=== PATIENT | female | born 1945 | race Hispanic/Latino ===

== ENCOUNTER 2017-06-18 11:29 | Inpatient (IN) | payer OTHER ==
--- NOTE | 2017-06-18 12:08 | ED PDOC ---
Arrival/HPI - General Chief Complaint: Chest Pain Time Seen by Provider: 06/18/17 11:42 Historian: Patient, Family - History of Present Illness Narrative History of Present Illness (Text): you were treated in the ED today for history of CABG, stent placement with CAD, HTN, HL, Neuropathy of the lower extremities, TIA and now your having mid- sternal chest with radiation to the neck and arms with difficulty breathing, but otherwise without any change to your baseline strength/sensation and your without nausea/vomiting/headache/dizziness/abdomen pain/numbness/tingling/loss of limb function/pain with urination. you took a full dose of aspirin and your plavix today and don't want further pain control. 06/18/17 12:00 Time/Duration: Other (1 day) Symptom Onset: Gradual Symptom Course: Improving Severity Level: Mild Context: Sitting Past Medical History - Provider Review Nursing Documentation Reviewed: Yes - Travel History Have you recently traveled outside [place] w/in the past 3 mons?: No - Infectious Disease Hx of Infectious Diseases: None - Tetanus Immunization Tetanus Immunization: Unknown - Reproductive Menopause: Yes - Cardiac Hx NV: Yes - Pulmonary Hx Asthma: Yes Hx Chronic Obstructive Pulmonary Disease (COPD): Yes - Neurological Hx Paralysis: No - HEENT Hx HEENT Disorder: Yes (WEARS GLASSES) - Renal Hx Renal Disorder: No (DENIES HISTORY) - Endocrine/Metabolic Hx Diabetes Mellitus Type 2: Yes - Hematological/Oncological Hx Blood Transfusions: Yes Hx Blood Transfusion Reaction: No - Integumentary Hx Dermatological Disorder: Yes - Musculoskeletal/Rheumatological Hx Musculoskeletal Disorders: Yes - Gastrointestinal Hx Gastroesophageal Reflux: Yes (Pt. reports that she had lapband surgery) - Genitourinary/Gynecological Other/Comment: breast cancer, vaginal infections - Psychiatric Hx Emotional Abuse: No Hx Physical Abuse: No Hx Substance Use: No - Surgical History Hx Cardiac Catheterization: Yes Hx Coronary Artery Bypass Graft: Yes - Anesthesia Hx Anesthesia Reactions: Yes (SEVERE NUMBNESS LOWER EXT. AFTER C- SECTION) Hx Malignant Hyperthermia: No - Suicidal Assessment Feels Threatened In Home Enviroment: No Family/Social History - Physician Review Nursing Documentation Reviewed: Yes Family/Social History: No Known Family HX Smoking Status: Never Smoked Hx Alcohol Use: No Hx Substance Use: No Hx Substance Use Treatment: No Allergies/Home Meds Allergies/Adverse Reactions: Allergies clarithromycin [From Biaxin] Allergy (Verified 06/18/17 11:37) SWELLING codeine Allergy (Verified 06/18/17 11:37) SWELLING Iodinated Contrast- Oral and IV Dye [Iodinated Contrast Media - IV Dye] Allergy (Verified 06/18/17 11:37) RASH shellfish derived Allergy (Verified 06/18/17 11:37) RASH Home Medications: Home Meds Medication Instructions Recorded Confirmed Alprazolam [Xanax] 0.25 mg PO HS 10/08/12 06/18/17 Aspirin [Ecotrin] 325 mg PO DAILY 10/08/12 06/18/17 Clopidogrel [Plavix] 75 mg PO DAILY 10/08/12 06/18/17 Losartan [Cozaar] 100 mg PO DAILY 10/08/12 06/18/17 Levothyroxine Sodium 112 mcg PO DAILY 10/23/15 06/18/17 Metoprolol Tartrate 25 mg PO BID 10/23/15 06/18/17 Primidone [Mysoline] 50 mg PO HS 10/23/15 06/18/17 Ranolazine [Ranexa] 500 mg PO TID 10/23/15 06/18/17 Rosuvastatin Calcium [Crestor] 20 mg PO DAILY 10/23/15 06/18/17 Gabapentin [Neurontin] 400 mg PO QID 04/12/16 06/18/17 Sertraline [Zoloft] 100 mg PO HS 04/12/16 06/18/17 Cetirizine HCl [Wal-Zyr] 10 mg PO PRN 06/18/17 06/18/17 DULoxetine [Cymbalta] 30 mg PO PRN 06/18/17 06/18/17 Fluticasone Nasal [Flonase] 0 mg NS 06/18/17 06/18/17 Insulin Glargine,Hum.rec.anlog 70 unit SQ HS 06/18/17 06/18/17 [Toujeo Solostar] Insulin Lispro [Humalog (Insulin 10 unit SQ TID 06/18/17 06/18/17 Lispro)] Omeprazole Magnesium [Prilosec] 20 mg PO DAILY 06/18/17 06/18/17 Vit D 1.25 1.25 mg PO 06/18/17 rOPINIRole [Requip] 1 mg PO HS 06/18/17 06/18/17 Review of Systems - Review of Systems Constitutional: Normal Eyes: Normal ENT: Normal Respiratory: SOB Cardiovascular: Chest Pain Gastrointestinal: Normal Genitourinary Female: Normal Musculoskeletal: Normal Skin: Normal Neurological: Normal Endocrine: Normal Hemo/Lymphatic: Normal Psychiatric: Normal Physical Exam Vital Signs Reviewed: Yes Vital Signs Temp Pulse Resp BP Pulse Ox 06/18/17 11:36 98.3 F 75 16 108/41 L 98 Appearance: Positive for: Non-Toxic Pain Distress: None Mental Status: Positive for: Alert and Oriented X 3 - Systems Exam Head: Present: Atraumatic, Normocephalic Pupils: Present: PERRL Extroacular Muscles: Present: EOMI Conjunctiva: Present: Normal Ears: Present: Normal Mouth: Present: Moist Mucous Membranes Pharnyx: Present: Normal Nose (External): Present: Atraumatic Nose (Internal): Present: Normal Inspection Neck: Present: Normal Range of Motion Respiratory/Chest: Present: Clear to Auscultation, Good Air Exchange Cardiovascular: Present: Regular Rate and Rhythm Abdomen: No: Tenderness, Distention, Normal Bowel Sounds, Peritoneal Signs, Rebound, Guarding, McBurney's Point Tender, Rovsing's Sign Present, Hernias, Feeding Tubes, Ostomy Tubes, Mass/Organomegaly, Scars, Other Back: Present: Normal Inspection Upper Extremity: Present: Normal Inspection Lower Extremity: Present: Normal Inspection Neurological: Present: GCS=15, CN II-XII Intact, Speech Normal, Motor Func Grossly Intact Skin: Present: Warm, Normal Color Psychiatric: Present: Alert, Oriented x 3, Normal Insight, Normal Concentration Medical Decision Making ED Course and Treatment: you were treated in the ED today for history of CABG, stent placement with CAD, HTN, HL, Neuropathy of the lower extremities, TIA and now your having mid- sternal chest with radiation to the neck and arms with difficulty breathing, but otherwise without any change to your baseline strength/sensation and your without nausea/vomiting/headache/dizziness/abdomen pain/numbness/tingling/loss of limb function/pain with urination. you took a full dose of aspirin and your plavix today and don't want further pain control. You were otherwise breathing easily, tearful, good strength/sensation, clear lungs, no abdomen tenderness. wbc 12.5, trop neg, bnp 313, mg 1.6. CHEST X-RAY Dictator : Guadalupe Gilmore MD Report Date : 06/18/2017 13:36:25 IMPRESSION: No appreciable new focal infiltrate although some mild bibasilar volume loss is suspected. Mild linear scarring in the left lower lobe is also noted. 06/18/17 13:51 06/18/17 13:52 D.WDevon Piper who stated can admit to telemetry and consult Dr. Mendes cardiology. - Lab Interpretations Lab Results: 06/18/17 11:35 06/18/17 11:35 Lab Results 06/18/17 11:35: Sodium 139, Potassium 4.5, Chloride 102, Carbon Dioxide 23, Anion Gap 18, BUN 13, Creatinine 0.9, Est GFR ( Amer) > 60, Est GFR (Non- Af Amer) > 60, Random Glucose 89, Calcium 10.7 H, Magnesium 1.6 L, Total Bilirubin 1.0, AST 45 H, ALT 28, Alkaline Phosphatase 60, Lactate Dehydrogenase 500, Total Creatine Kinase 57, Troponin I < 0.01, NT-Pro-B Natriuret Pep 313, Total Protein 7.7, Albumin 4.4, Globulin 3.3, Albumin/Globulin Ratio 1.4 06/18/17 11:35: PT 12.9 H, INR 1.12 H, APTT 27.0 06/18/17 11:35: WBC 12.5 H D, RBC 4.59, Hgb 14.3, Hct 40.9, MCV 89.1, MCH 31.2, MCHC 35.0, RDW 12.6, Plt Count 189, MPV 10.1, Gran % 87.8 H, Lymph % (Auto) 6.1 L, [place] % (Auto) 5.6, Eos % (Auto) 0.4 L, Baso % (Auto) 0.1, Gran # 10.97 H, Lymph # 0.8 L, [place] # 0.7 H, Eos # 0.1, Baso # 0.01 I have reviewed the lab results: Yes (mg 1.6) - RAD Interpretation Radiology Orders: 06/18/17 11:56 CHEST TWO VIEWS (PA/LAT) [RAD] Stat Machine Pan Greaser: ED Physician (CXR similar to 10/23/15) - EKG Interpretation Interpreted by ED Physician: Yes (NSR, flipped t waves avr, v4, v5, v6 similar to 06/19/15) Type: 12 lead EKG - Medication Orders Current Medication Orders: Magnesium Sulfate 2 gm/ Sodium (Chloride) 104 mls @ 102 mls/hr IVPB ONCE ONE Stop: 06/18/17 13:58 Disposition/Present on Arrival - Present on Arrival Any Indicators Present on Arrival: No History of DVT/PE: No History of Uncontrolled Diabetes: No Urinary Catheter: No History of Decub. Ulcer: No History Surgical Site Infection Following: None - Disposition Have Diagnosis and Disposition been Completed?: Yes Diagnosis: Chest pain Disposition: HOSPITALIZED Disposition Time: 13:53 Patient Plan: Admission, Telemetry Condition: IMPROVED Discharge Instructions (ExitCare): Chest Pain (ED) Forms: [facility] [facility] (Czech)
[2017-06-18 12:15] LABS: BASO # 0.01 K/mm3 (0.0-2.0); BASO % 0.1 % (0.0-3.0); EOS # 0.1 (0.0-0.7); EOS % 0.4 % (1.5-5.0); GRAN # 10.97 (1.4-6.5); GRAN % 87.8 % (50.0-68.0); HEMOGLOBIN 14.3 g/dL (12.0-16.0); LYMPH # 0.8 (1.2-3.4); LYMPH % 6.1 % (22.0-35.0); MEAN CELL VOLUME 89.1 fl (80.0-105.0); MEAN CORPUSCULAR HEMOGLOBIN 31.2 pg (25.0-35.0); MEAN PLATELET VOLUME 10.1 fl (7.0-11.0); MONO # 0.7 (0.1-0.6); MONO % 5.6 % (1.0-6.0); RBC 4.59 10^6/uL (3.5-6.1); RED CELL DISTRIBUTION WIDTH 12.6 % (11.5-14.5); WHITE BLOOD COUNT 12.5 10^3/ul (4.5-11.0)
[2017-06-18 12:38] LABS: INR 1.12 (0.93-1.08); PROTHROMBIN TIME 12.9 SECONDS (9.4-12.5)
[2017-06-18 12:42] LABS: ALB/GLOB RATIO 1.4 (1.1-1.8); ALBUMIN 4.4 g/dL (3.0-4.8); ALT/SGPT 28 U/L (7-56); AST/SGOT 45 U/L (14-36); BLOOD UREA NITROGEN 13 mg/dL (7-21); CALCIUM 10.7 mg/dL (8.4-10.5); GFR AFRICAN-AMERICAN > 60; GFR NON-AFRICAN AMERICAN > 60; MAGNESIUM 1.6 mg/dL (1.7-2.2)
[2017-06-18 12:54] LABS: TROPONIN I < 0.01 ng/mL
[2017-06-18] MEDS ORDERED: Magnesium Sulfate 2 GM in Sodium Chloride 0.9% 100 ML IVPB ONE (12:57)
[2017-06-18 12:58] LABS: B-TYPE NATRIURETIC PEPTIDE 313 pg/mL (0-450)
--- NOTE | 2017-06-18 13:37 | RAD ---
HISTORY: 71yoF, with chest pain COMPARISON: 10/23/2015 TECHNIQUE: Chest PA and lateral FINDINGS: LUNGS: There is mild hazy density at the lung bases probably suggesting some mild volume loss. Minimal linear scarring is also seen in the left lower lobe. There is evidence of prior median sternotomy and neurostimulator device overlying the spine, both unchanged. No pneumothorax or effusion is seen. Trachea is midline. Heart is unchanged. No CHF is seen. PLEURA: No significant pleural effusion identified. No pneumothorax apparent. CARDIOVASCULAR: Normal. OSSEOUS STRUCTURES: No significant abnormalities. VISUALIZED UPPER ABDOMEN: Normal. OTHER FINDINGS: None. IMPRESSION: No appreciable new focal infiltrate although some mild bibasilar volume loss is suspected. Mild linear scarring in the left lower lobe is also noted.
--- NOTE | 2017-06-18 21:26 | HP ---
DATE: 06/18/2017 HISTORY OF PRESENT ILLNESS: Ms. Galaviz is a 71-year-old female presented to the ED with substernal chest pain. She has a history of coronary artery disease, status post CABG. History of hypertension, blood pressure controlled on current medications. She has also history of TIA in the past, no recent episodes, peripheral neuropathy. Also has a history of breast cancer, no evidence of relapse. No abdominal pain. No nausea. No vomiting. Also complaining of shortness of breath. PAST MEDICAL HISTORY: COPD, diabetes mellitus type 2, breast cancer, and CAD. PAST SURGICAL HISTORY: Status post CABG, status post Lap-Band surgery. PERSONAL HISTORY: Never smoked. No history of alcohol abuse. FAMILY HISTORY: Noncontributory. SOCIAL HISTORY: Lives at home. ALLERGIES: CLARITHROMYCIN, CODEINE, IODINE, AND SHELLFISH. HOME MEDICATIONS: Xanax 0.25 mg p.o. at bedtime, aspirin 325 mg p.o. daily, Plavix 75 mg daily, Cozaar 100 mg daily, Synthroid 112 mcg daily, metoprolol 25 mg p.o. b.i.d., Ranexa 500 mg p.o. t.i.d., gabapentin 400 four times daily, Zoloft 100 mg at bedtime, cetirizine 10 mg p.r.n., and Cymbalta 30 mg p.r.n. REVIEW OF SYSTEMS: As per HPI. Rest of 12-point review of systems reviewed is negative. PHYSICAL EXAMINATION: GENERAL: Mild respiratory distress. VITAL SIGNS: Temperature 98.7, heart rate 82 per minute, and blood pressure 140/70. HEENT: Oral mucosa dry. NECK: No lymphadenopathy. CHEST: Air entry present and equal bilaterally. No added sounds. CARDIOVASCULAR: S1 and S2 normal. No murmur. No gallop. ABDOMEN: Soft and nontender. No hepatosplenomegaly. EXTREMITIES: No edema. SKIN: Multiple scratch ott present, small petechiae related to itch ott. CENTRAL NERVOUS SYSTEM: Alert and oriented x3. No sensory or motor deficits. SPINE: Nontender. SKIN: As described above. DIAGNOSTIC DATA: Chest x-ray, no infiltrate. LABORATORY DATA: Reveals leukocytosis. Troponin normal. Renal functions normal. ASSESSMENT AND PLAN: Chest pain COPD exacerbation CAD DM II H/O breast cancer - no evidence of recurrence Leukocytosis Plan : We will admit to the hospital, telemonitoring, serial troponin monitoring. Cardiology consultation, Dr. Mendes requested. We will continue aspirin and Plavix. History of breast cancer. No evidence of recurrence. Chronic obstructive pulmonary disease. We will do DuoNebs and Solu-Medrol 20 b.i.d. Leukocytosis, we will sent UA stat. Ceftriaxone 1 g daily. Diabetes mellitus type 2, she will be on Lantus insulin 20 at bedtime and regular insulin 10 t.i.d. We will continue to monitor closely. Aura Piper MD MTDD
[2017-06-18] MEDS: Insulin Detemir 100 units/ml Vial (Levemir) SC SCH (21:39)
[2017-06-18] MEDS ORDERED: INSULIN GLARGINE HUM REC ANLOG 70 UNIT SQ SCH (22:00)
[2017-06-18 22:41] LABS: PH,URINE 6.5 (4.7-8.0); URINE BILIRUBIN NEGATIVE (NEGATIVE); URINE BLOOD NEGATIVE (NEGATIVE); URINE GLUCOSE (UA) NEGATIVE (NEGATIVE); URINE LEUKOCYTE ESTERASE TRACE Leu/uL (NEGATIVE); URINE NITRATE NEGATIVE (NEGATIVE); URINE PROTEIN TRACE mg/dL (<30 mg/dL); URINE UROBILINOGEN 0.2 E.U./dL (<1 E.U./dL)
[2017-06-18 22:44] LABS: URINE APPEARANCE CLEAR (CLEAR); URINE COLOR YELLOW (YELLOW)
[2017-06-18 22:46] VITALS: BMI 25.3
[2017-06-18 23:11] LABS: URINE RBC 0 - 2 /hpf (0-2)
[2017-06-18 23:12] LABS: URINE BACTERIA NEG (NEG)
[2017-06-19] MEDS: Insulin Lispro 1 UNITS/0.01 ML SC SCH ×3 (08:34→18:11)
[2017-06-19] MEDS: Levothyroxine 112 MCG TAB PO SCH (08:35)
[2017-06-19] MEDS: Pantoprazole 40 mg EC Tab PO SCH (08:35)
[2017-06-19] MEDS ORDERED: INSULIN LISPRO 10 UNIT SQ SCH (10:00)
[2017-06-19] MEDS ORDERED: Non Formulary Medication (Rosuvastatin Calcium [Crestor] 20 MG) PO SCH (10:00)
--- NOTE | 2017-06-19 10:16 | CARD ---
APPROVED REPORT EKG Measurement Heart [id number] ND 136P71 [id number] <Conclusion> Normal sinus rhythm Left anterior fascicular block Anterolateral infarct, old STTW changes No change
[2017-06-19] MEDS: Aspirin 325 mg EC Tablets PO SCH (10:39)
[2017-06-19] MEDS: Non Formulary Medication (Ranolazine [Ranexa] 500 MG) PO SCH ×3 (10:46→19:55)
[2017-06-19] MEDS: Enoxaparin 40 mg Syringe SC SCH (15:02)
--- NOTE | 2017-06-19 16:33 | CT ---
PROCEDURE: CT HEAD WITHOUT CONTRAST. HISTORY: TIA COMPARISON: Noncontrast head CT performed 10/24/15, MR brain without contrast performed 05/13/17 TECHNIQUE: Axial computed tomography images were obtained through the head/brain without intravenous contrast. Radiation dose: Total exam DLP = 814.63 mGy-cm. This CT exam was performed using one or more of the following dose reduction techniques: Automated exposure control, adjustment of the mA and/or kV according to patient size, and/or use of iterative reconstruction technique. FINDINGS: HEMORRHAGE: No intracranial hemorrhage. BRAIN: No mass effect or edema. The ruiz-white matter differentiation appears intact. Please note that MRI with diffusion imaging is more sensitive in the detection of acute ischemic event. VENTRICLES: No hydrocephalus. CALVARIUM: Unremarkable. PARANASAL SINUSES: Unremarkable as visualized. No significant inflammatory changes. MASTOID AIR CELLS: Unremarkable as visualized. No inflammatory changes. OTHER FINDINGS: None. IMPRESSION: No acute intracranial pathology identified.
[2017-06-19] MEDS: Insulin Detemir 100 units/ml Vial (Levemir) SC SCH (22:28)
--- NOTE | 2017-06-20 01:02 | PN ---
DATE: 06/19/2017 SUBJECTIVE: The patient has no complaints of any chest pain. No shortness of breath. No headaches or dizziness. She says her breathing is better. Her chest pain is resolved. PHYSICAL EXAMINATION: VITAL SIGNS: Temperature is 99, pulse is 63, blood pressure is 114/63, and respirations are 18. GENERAL: The patient is lying in bed, flat, comfortable. HEENT: No oral lesion. Anicteric sclerae. Moist mucosa. NECK: No JVD, adenopathy, or thyromegaly. CARDIOVASCULAR: S1 and S2, regular. No murmurs, rubs, or gallops. LUNGS: Clear to auscultation bilaterally. No wheeze, rales, or rhonchi. ABDOMEN: Bowel sounds are positive, soft, nontender and nondistended. EXTREMITIES: No cyanosis, clubbing or edema. LABORATORY DATA: White count of 12.5 and hemoglobin of 14.3. Rest of the labs have been reviewed. CT of the head done shows no pathology. ASSESSMENT: 1. Chest pain, resolved. 2. Coronary artery disease. 3. Diabetes type 2. PLAN: The patient is currently comfortable. She is going to be seen by Cardiology. The patient is on Lipitor for dyslipidemia. She is on diabetes medication with Humalog. The patient is on aspirin. She is going to continue with Lovenox. She is on gabapentin for her neuropathy. She is on Synthroid for hypothyroidism. She has an echo that has been ordered. I will repeat the patient's blood work and order physical therapy. Ayan Parham MD
--- NOTE | 2017-06-20 02:46 | CON ---
DATE: CARDIOLOGY CONSULTATION REASON FOR CONSULTATION: Chest pain. HISTORY OF PRESENT ILLNESS: The patient is a 71-year-old female, who has a history of coronary artery disease, status post coronary artery bypass surgery and multiple stenting in the past, according to the patient, who presented because of chest tightness radiating to the neck and both arms associated with shortness of breath. The patient is known to have a history of ischemic cardiomyopathy and most recent report of cardiac cath on records was noted from 03/2014, and the procedure revealed apical akinesis with ejection fraction of 35% to 40% and her coronary anatomy revealed patent stents in the RCA. No critical lesion in the circumflex and the occluded stent of LAD unchanged from previous study. The LOZADA was not chosen for coronary artery bypass surgery and given those findings, those were not changed from previous study, decision was made to explore other causes for progressive chest pain. The most recent Myoview stress test on record was from 04/2016 which revealed fixed anteroseptal, anterolateral and apical defect, suggestive for myocardial injury/ infarct, moderate LV dysfunction with anteroseptal and apical akinesis. SOCIAL HISTORY: The patient is nonsmoker. PAST MEDICAL HISTORY: Hypertension, coronary artery bypass surgery, TIA, and ischemic cardiomyopathy. MEDICATIONS: The patient is on aspirin 81 mg once a day, Lipitor mg once a day, Lopressor 25 mg once a day was withheld today, Neurontin 400 mg four times daily, Plavix 75 mg once a day, Synthroid 112 mcg once a day, Zoloft 100 mg once a day, Xanax 0.25 mg at bedtime. REVIEW OF SYSTEMS: No nausea or vomiting. No fever or chills. The patient is experiencing right arm pain. PHYSICAL EXAMINATION GENERAL: The patient is an elderly female who does not appear to be in acute distress. VITAL SIGNS: Blood pressure 116/63, heart rate 67, temperature 97.8, respirations 18. HEENT: Normocephalic. CHEST: Clear. HEART: S1 and S2 regular. ABDOMEN: Soft. EXTREMITIES: No edema. LABORATORY DATA: Today's SMA-7 is entirely within normal limits. Calcium is slightly abnormal at 10.7, magnesium is below normal at 1.6, one set of troponin is negative. Hemoglobin and hematocrit are 14.3 and 40.9, white count and platelet count are 12.5 and 189,000. Chest x-ray revealed borderline cardiomegaly, mild right lower lobe infiltrate. EKG revealed sinus rhythm, left anterior fascicular block, anterior old myocardial infarction. ASSESSMENT: 1. Chest pain, rule out myocardial infarction. 2. Ischemic cardiomyopathy. 3. Rule out transient ischemic attack. 4. Mild hypercalcemia. 5. Hypomagnesemia. RECOMMENDATIONS: Continue current aspirin and Plavix therapy. Continue Lopressor 25 mg twice a day and Cozaar 100 mg once a day. Start Lovenox 20 mg once a day. Obtain an echocardiogram and head CT scan without contrast. Rakan Regalado MD
[2017-06-20 07:13] LABS: MEAN CELL VOLUME 90.1 fl (80.0-105.0); MEAN CORPUSCULAR HEMOGLOBIN 30.6 pg (25.0-35.0); MEAN PLATELET VOLUME 9.9 fl (7.0-11.0); RBC 3.95 10^6/uL (3.5-6.1); RED CELL DISTRIBUTION WIDTH 12.4 % (11.5-14.5); WHITE BLOOD COUNT 7.7 10^3/ul (4.5-11.0)
[2017-06-20 07:16] LABS: HEMOGLOBIN 12.1 g/dL (12.0-16.0)
[2017-06-20 07:19] LABS: ALB/GLOB RATIO 1.1 (1.1-1.8); ALBUMIN 3.4 g/dL (3.0-4.8); ALT/SGPT 21 U/L (7-56); AST/SGOT 32 U/L (14-36); BLOOD UREA NITROGEN 13 mg/dL (7-21); CALCIUM 9.6 mg/dL (8.4-10.5); GFR AFRICAN-AMERICAN > 60; GFR NON-AFRICAN AMERICAN > 60
[2017-06-20 07:25] LABS: TROPONIN I 0.02 ng/mL
[2017-06-20] MEDS: Insulin Lispro 1 UNITS/0.01 ML SC SCH ×3 (07:30→19:03)
[2017-06-20] MEDS: Pantoprazole 40 mg EC Tab PO SCH (07:30)
[2017-06-20] MEDS: Levothyroxine 112 MCG TAB PO SCH (07:30)
--- NOTE | 2017-06-20 08:17 | PN ---
DATE: 06/20/2017 SUBJECTIVE: The patient has no complaints of any chest pain. No shortness of breath. No headaches. She says her chest pain is resolved. PHYSICAL EXAMINATION: VITAL SIGNS: Temperature is 97.5, pulse is 65, blood pressure is 117/62, and respirations are 20. GENERAL: The patient is lying in bed, flat, comfortable. HEENT: No oral lesion. Anicteric sclerae. Moist mucosa. NECK: No JVD, adenopathy, or thyromegaly. CARDIOVASCULAR: S1 and S2, regular. No murmurs, rubs, or gallops. LUNGS: Clear to auscultation bilaterally. No wheeze, rales, or rhonchi. ABDOMEN: Bowel sounds are positive, soft, nontender and nondistended. EXTREMITIES: No cyanosis, clubbing or edema. ASSESSMENT: 1. Chest pain, resolved. 2. Coronary artery disease. 3. Diabetes type 2. 4. Diabetic neuropathy. 5. Gastroparesis. 6. Hypothyroidism. 7. Chronic obstructive pulmonary disease. 8. Coronary artery disease. 9. 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 10. History of gastritis and reflux esophagitis. 11. History of lap band surgery. PLAN: The patient is currently on Claritin for congestion. She is on losartan for her blood pressure. She is on aspirin for coronary artery disease. She is receiving insulin for her diabetes, lispro 10 units with meals and insulin detemir 20 units subcu at bedtime. The patient is on Lipitor for dyslipidemia. She is on Lovenox for DVT prophylaxis. She is on gabapentin for her neuropathy. She is on Ranexa for her chest pain. She is on Synthroid for hypothyroidism. She also received Zoloft. She has an echo that has been ordered and is pending. She is going to be doing physical therapy. We will await for input from Dr. Mendes regarding any other issues. blood work and troponin is pending this morning. Ayan Parham MD
[2017-06-20] MEDS: Aspirin 325 mg EC Tablets PO SCH (10:29)
[2017-06-20] MEDS: Enoxaparin 40 mg Syringe SC SCH (10:30)
[2017-06-20] MEDS: Ranolazine [Ranexa] 500 MG (HOME MED) PO SCH ×2 (15:06→18:06)
--- NOTE | 2017-06-20 16:12 | CARD ---
APPROVED REPORT EXAM: Two-dimensional and M-mode echocardiogram with Doppler and color Doppler. INDICATION Chest Pain 2D DIMENSIONS Left Atrium (2D)4.1 (1.6-4.0cm)IVSd1.1 (0.7-1.1cm) LVDd5.0 (3.9-5.9cm)PWd0.9 (0.7-1.1cm) LVDs3.6 (2.5-4.0cm)FS (%) 27.6 % LVEF (%)45.0 (>50%) M-Mode DIMENSIONS Aortic Root2.60 (2.2-3.7cm)Aortic Cusp Exc.1.60 (1.5-2.0cm) Aortic Valve AoV Peak Wwetalbb192.0cm/Anjali Peak GR.8mmHg Mitral Valve MV E Lagxnxhs02.0cm/sMV A Btyzgwje52.4cm/sE/A ratio0.8 TDI E/Lateral E'0.0E/Medial E'0.0 Tricuspid Valve TR Peak Nvresbbx158bz/sRAP SLNEAIWH93mvOiKW Peak Gr.23mmHg [id number] LEFT VENTRICLE The left ventricle is normal size. There is normal left ventricular wall thickness. The systolic function is mildly impaired. Aneurysmal Gipsy Transmitral Doppler flow pattern is Grade I-abnormal relaxation pattern. No left ventricle thrombus noted on this study. RIGHT VENTRICLE The right ventricle is normal size. There is normal right ventricular wall thickness. The right ventricular systolic function is normal. ATRIA The left atrium size is normal. The right atrium size is normal. AORTIC VALVE The aortic valve is normal in structure. No aortic regurgitation is present. There is no aortic valvular stenosis. MITRAL VALVE The mitral valve is normal in structure. There is no mitral valve regurgitation noted. There is no mitral valve stenosis. TRICUSPID VALVE There is mild pulmonary hypertension. GREAT VESSELS The aortic root is normal in size. The IVC was not visualized. PERICARDIAL EFFUSION There is no pericardial effusion. <Conclusion> The left ventricle is normal size. There is normal left ventricular wall thickness. The systolic function is mildly impaired. Aneurysmal Gipsy No left ventricle thrombus noted on this study. Transmitral Doppler flow pattern is Grade I-abnormal relaxation pattern. There is mild pulmonary hypertension.
--- NOTE | 2017-06-20 18:57 | PN ---
DATE: 06/20/2017 SUBJECTIVE: The patient still complains of pressure-like chest pain intermittently. PHYSICAL EXAMINATION VITAL SIGNS: Blood pressure is 114/67 and heart rates in the 60s. NECK: Negative JVD. LUNGS: Without rales or S1 and S2. EXTREMITIES: Without edema. LABORATORY DATA: Troponins are negative. BUN and creatinine unremarkable. Glucose is 112 with a hemoglobin of 12.1. IMPRESSION: 1. Recurrent angina. 2. History of coronary artery bypass surgery. 3. Coronary artery disease. 4. History of transmyocardial revascularization. 5. Diabetes mellitus. Given her ongoing anginal symptoms, we will proceed to cardiac catheterization in the morning. I have discussed with the patient in detail. We will pre-treat the patient with steroids today. Kenji Mendes MD
[2017-06-20] MEDS: Insulin Detemir 100 units/ml Vial (Levemir) SC SCH (21:46)
[2017-06-21] MEDS: Insulin Lispro 1 UNITS/0.01 ML SC SCH ×3 (09:21→16:58)
[2017-06-21] MEDS: Levothyroxine 112 MCG TAB PO SCH (09:22)
[2017-06-21] MEDS: Pantoprazole 40 mg EC Tab PO SCH (09:22)
[2017-06-21] MEDS: Aspirin 325 mg EC Tablets PO SCH (10:40)
[2017-06-21] MEDS: Ranolazine [Ranexa] 500 MG (HOME MED) PO SCH ×3 (10:41→17:42)
[2017-06-21] MEDS ORDERED: Lidocaine 2% Inj (20ml) ONE (12:28)
[2017-06-21] MEDS ORDERED: HEPARIN SODIUM/NS 2,000 ML IV ONE (12:28)
[2017-06-21] MEDS ORDERED: DiphenhydrAMINE 50 mg/ml Inj ONE (12:47)
[2017-06-21] MEDS ORDERED: Famotidine 20mg/50ml 20 MG/50 ML BAG IVPB ONE (12:47)
[2017-06-21] MEDS: Insulin Reg-MEDIUM-Coverage SC SCH ×3 (12:52→21:56)
[2017-06-21] MEDS ORDERED: Sodium Chloride 0.9% 1,000 ML IV SCH (14:30)
--- NOTE | 2017-06-21 14:32 | PN ---
DATE: SUBJECTIVE: The patient has no complaints of any chest pain, no shortness of breath, no headaches. PHYSICAL EXAMINATION VITAL SIGNS: Temperature is 98.5, pulse of 63, blood pressure is 133/66, and respirations 18. GENERAL: The patient is lying in bed, flat, comfortable. HEENT: No oral lesion. Anicteric sclerae. Moist mucosa. NECK: No JVD, adenopathy, or thyromegaly. CARDIOVASCULAR: S1 and S2, regular. No murmurs, rubs, or gallops. LUNGS: Clear to auscultation bilaterally. No wheeze, rales, or rhonchi. ABDOMEN: Bowel sounds are positive. Soft, nontender and nondistended. EXTREMITIES: No cyanosis, clubbing or edema. LABORATORY DATA: Creatinine is 0.9. ASSESSMENT: 1. Unstable angina/chest pain, improved. 2. Coronary artery disease. 3. Diabetes type 2. 4. Diabetic neuropathy. 5. Gastroparesis. 6. Chronic obstructive pulmonary disease. 7. Congestive heart failure secondary to systolic dysfunction, stable. 8. History of gastritis and reflux esophagitis. 9. History of Lap-Band surgery. PLAN: The patient is on losartan for hypertension. She is going to be continued on her insulin. Her fingersticks are mildly elevated. She also needs to be on coverage, she is elevated because of prednisone that she was on. I will place her on medium dose algorithm for her fingerstick coverage. She is going to cardiac cath today with Dr. Mendes. The patient is on Plavix. She is going to continue with Synthroid for hypothyroidism. She is on Zoloft. The patient is being seen by Physical Therapy. She may be a candidate for Transitional Care Unit. Ayan Parham MD
[2017-06-21] MEDS ORDERED: Midazolam 2 MG/2 ML VIAL ONE (14:41)
--- NOTE | 2017-06-21 18:27 | CARD ---
APPROVED REPORT EKG Measurement Heart [id number] PA [id number] <Conclusion> Normal sinus rhythm Left anterior fascicular block Anterolateral infarct, age undetermined Abnormal ECG
[2017-06-21] MEDS: Insulin Detemir 100 units/ml Vial (Levemir) SC SCH (22:06)
--- NOTE | 2017-06-21 23:29 | CARDCATH ---
PROCEDURE DATE: 06/21/2017 CARDIAC CATHETERIZATION AND PERCUTANEOUS TRANSLUMINAL CORONARY ANGIOPLASTY HISTORY: The patient is a 71-year-old woman who presents with angina. The patient has had undergone coronary bypass surgery as well as multivessel PTCA as well as TMR in the past to try to control angina. She has done well until recently when she has experienced chest pain again. Because of this, a cardiac catheterization is recommended. PROCEDURE: Left heart catheterization with coronary arteriography and left ventriculogram followed by percutaneous transluminal coronary angioplasty and stent of proximal left anterior descending. I performed moderate sedation, which included the presence of an independent trained observer that assisted in monitoring the patient's level of consciousness and physiologic status. After administration of Versed and fentanyl, my intra service time was 30 minutes. The findings on catheterization revealed an RCA that revealed was a dominant vessel and found to have of multiple patent stents. The left main artery was unremarkable. The circumflex artery and obtuse marginal branches were free of significant disease with patent stents. The LAD was occluded in its midportion where almost the entire length of the of the LAD was treated with a stent. In the proximal portion of the of the LAD prior to the septal manager salt and diagonal vessel, there is an 80% stenoses noted. LV function was abnormal with anterior apical akinesis with an overall ejection fraction approximately 40%. The patient was started on intravenous Angiomax. On the fluoroscopic guide, the guiding catheter was placed in the ostium of the left main artery. Multiple attempts were used to cross the long in-stent restenosis in the LAD. The wire was able to go retirement through the total occlusion; however, a 2.0 balloon would not pass. This was then aborted and instead, a 2.5 x 8 mm stent was placed and deployed in the proximal LAD at 14 atmospheres of pressure. Repeat coronary arteriography revealed an excellent result with no residual stenoses. The total occlusion in the mid to distal LAD remained. Angio-Seal was used to close the femoral artery site. The patient tolerated the procedure well. In summary, the procedure was successful PTCA and stent of a proximal LAD with a drug-eluting stent. The total occlusion of the mid and distal LAD was unsuccessful in crossing. The proximal patency of the stent will provide flow to the diagonal vessel as well as to the septal manager salt. Cardiac catheterization revealed patent stents in the RCA and circumflex artery. Given these findings, the patient will need to remain on aspirin indefinitely and Plavix for at least a year and undergo a strict cardiac risk reduction program. Kenji Mendes MD
[2017-06-22 07:21] LABS: GRAN # 8.78 (1.4-6.5); GRAN % 83.3 % (50.0-68.0); HEMOGLOBIN 12.1 g/dL (12.0-16.0); LYMPH # 1.1 (1.2-3.4); LYMPH % 10.3 % (22.0-35.0); MEAN CELL VOLUME 86.5 fl (80.0-105.0); MEAN CORPUSCULAR HEMOGLOBIN 30.7 pg (25.0-35.0); MEAN CORPUSCULAR HGB CONC 35.5 g/dl (31.0-37.0); MEAN PLATELET VOLUME 9.4 fl (7.0-11.0); MONO # 0.7 (0.1-0.6); MONO % 6.4 % (1.0-6.0); RBC 3.94 10^6/uL (3.5-6.1); RED CELL DISTRIBUTION WIDTH 12.1 % (11.5-14.5); WHITE BLOOD COUNT 10.5 10^3/ul (4.5-11.0)
[2017-06-22 08:02] LABS: BLOOD UREA NITROGEN 17 mg/dL (7-21); CALCIUM 10.1 mg/dL (8.4-10.5); GFR AFRICAN-AMERICAN > 60; GFR NON-AFRICAN AMERICAN > 60
[2017-06-22] MEDS: Levothyroxine 112 MCG TAB PO SCH (08:17)
[2017-06-22] MEDS: Pantoprazole 40 mg EC Tab PO SCH ×2 (08:17→08:24)
[2017-06-22] MEDS: Insulin Reg-MEDIUM-Coverage SC SCH ×4 (08:17→22:01)
[2017-06-22] MEDS: Insulin Lispro 1 UNITS/0.01 ML SC SCH ×3 (08:18→17:23)
[2017-06-22] MEDS: Aspirin 325 mg EC Tablets PO SCH (09:11)
[2017-06-22] MEDS: Ranolazine [Ranexa] 500 MG (HOME MED) PO SCH ×3 (09:12→19:21)
--- NOTE | 2017-06-22 15:23 | CARD ---
APPROVED REPORT EKG Measurement Heart [id number] <Conclusion> Normal sinus rhythm Left anterior fascicular block Anterolateral infarct, age undetermined Anterolateral ischemia Abnormal ECG
--- NOTE | 2017-06-22 18:21 | PN ---
DATE: 06/22/2017 CARDIOLOGY FOLLOWUP SUBJECTIVE: The patient is comfortable. No complaints. PHYSICAL EXAMINATION VITAL SIGNS: Blood pressure 129/57, heart rate in the 50s. NECK: Negative JVD. LUNGS: Without rales. HEART: S1, S2. EXTREMITIES: Without edema. Groin site is stable. LABORATORY DATA: Hemoglobin is 12.1, BUN and creatinine unremarkable. The glucose is 218. IMPRESSION: 1. Status post percutaneous transluminal coronary angioplasty and stent of a proximal left anterior descending. 2. Ischemic dilated cardiomyopathy. 3. History of coronary bypass surgery with occlusion of all her bypasses. 4. History of transmyocardial revascularization. 5. Diabetes mellitus. 6. History of hypertension. Given these findings, the patient is stable post PTCA and stent. The patient should be transferred to the TCU for Physical Therapy for her gait dysfunction. Kenji Mendes MD
[2017-06-22] MEDS: Insulin Detemir 100 units/ml Vial (Levemir) SC SCH (22:37)
--- NOTE | 2017-06-23 01:47 | DS ---
HISTORY OF PRESENT ILLNESS: This is a 71-year-old female who came into the hospital with chest pain, and unstable angina. The patient was taken to the cardiac cath rn by Dr. Kenji Andino. Please see the report that I reviewed. She had a successful PTCA and stent of proximal LAD with a drug eluting stent. The patient currently is comfortable. She is not complaining of any headaches or dizziness. No nausea. She was seen by Physical Therapy and TCU advised. PHYSICAL EXAMINATION: VITAL SIGNS: Temperature 98, pulse is 90, blood pressure 145/67 and respiration is 20. GENERAL: The patient is lying in bed, flat, comfortable. HEENT: No oral lesion. Anicteric sclerae. Moist mucosa. NECK: No JVD, adenopathy, or thyromegaly. CARDIOVASCULAR: S1 and S2, regular. No murmurs, rubs, or gallops. LUNGS: Clear to auscultation bilaterally. No wheeze, rales, or rhonchi. ABDOMEN: Bowel sounds are positive, soft, nontender and nondistended. EXTREMITIES: No cyanosis, clubbing or edema. ASSESSMENT: 1. Unstable angina/chest pain, resolved. 2. Coronary artery disease, status post stent. 3. Diabetes type 2. 4. Diabetic neuropathy. 5. Gastroparesis. 6. Chronic obstructive pulmonary disease. 7. Congestive heart failure, secondary to systolic dysfunction. 8. History of gastritis, reflux esophagitis. 9. History of left hand surgery. PLAN: The patient is currently on loratadine. She is going to continue with Cozaar for her blood pressure. She is on insulin for her diabetes. She is on Lipitor for dyslipidemia. She is receiving gabapentin for neuropathy. She is on prednisone daily because of the iodinated contrast allergy. She is on ReQuip. She is going to continue with Synthroid for hypothyroidism. I will see if she qualifies for the Transitional Care Unit will transfer her there, if not she will be discharged home. Ayan Parham MD
[2017-06-23 05:34] VITALS: PULSE 60; O2SAT 96
[2017-06-23] MEDS: Pantoprazole 40 mg EC Tab PO SCH (08:12)
[2017-06-23] MEDS: Levothyroxine 112 MCG TAB PO SCH (08:12)
[2017-06-23] MEDS: Insulin Reg-MEDIUM-Coverage SC SCH ×2 (08:12→12:50)
[2017-06-23] MEDS: Insulin Lispro 1 UNITS/0.01 ML SC SCH ×2 (08:18→12:50)
[2017-06-23 08:53] VITALS: BP 157/79; RESP 16; TEMP 97.8
--- NOTE | 2017-06-23 10:16 | PN ---
DATE: 06/23/2017 SUBJECTIVE: The patient is without chest pain. No shortness of breath. OBJECTIVE: VITAL SIGNS: Blood pressure is 157/80, heart rate in the 60s. NECK: Negative JVD. LUNGS: Without rales. HEART: S1, S2. EXTREMITIES: Without edema. LABORATORY DATA: There are no laboratories today. IMPRESSION: 1. Stable angina. 2. Coronary artery disease. 3. Status post percutaneous transluminal coronary angioplasty and stent. 4. History of coronary bypass surgery. 5. History of transmyocardial revascularization. PLAN: Given these findings, the patient is scheduled for transfer to a subacute rehab today for physical therapy for her weakness in her lower extremities. Kenji Mendes MD
[2017-06-23] MEDS ORDERED: Insulin Detemir 100 units/ml Vial (Levemir) SC SCH (10:25)
[2017-06-23] MEDS: Ranolazine [Ranexa] 500 MG (HOME MED) PO SCH ×2 (10:36→14:23)
[2017-06-23] MEDS: Aspirin 325 mg EC Tablets PO SCH (10:37)
--- NOTE | 2017-06-24 08:36 | DS ---
HISTORY OF PRESENT ILLNESS: This is a 71-year-old female who came into the hospital with chest pain. The patient was seen by Dr. Mendes and had a cardiac cath done. The patient currently feels well. She has no chest pain or shortness of breath. No headaches or dizziness. She was having unstable angina. She had a PTCA to have a proximal LAD lesion. She has an ischemic cardiomyopathy. She also was found to have occlusion of her bypass. She currently feels well and is going to be discharged. No headaches or dizziness. No nausea or vomiting. PHYSICAL EXAMINATION: VITAL SIGNS: Temperature is 97.9, pulse is 60, blood pressure is 167/79, and respiration are 18. GENERAL: The patient is lying in bed, flat, comfortable. HEENT: No oral lesion. Anicteric sclerae. Moist mucosa. NECK: No JVD, adenopathy, or thyromegaly. CARDIOVASCULAR: S1 and S2, regular. No murmurs, rubs, or gallops. LUNGS: Clear to auscultation bilaterally. No wheeze, rales, or rhonchi. ABDOMEN: Bowel sounds are positive, soft, nontender and nondistended. EXTREMITIES: No cyanosis, clubbing or edema. ASSESSMENT: 1. Unstable angina/chest pain, resolved. 2. Coronary artery disease, status post percutaneous coronary intervention and stenting of proximal left anterior descending artery. 3. Ischemic cardiomyopathy. 4. Diabetes type 2. 5. Diabetic neuropathy. 6. Gastroparesis. 7. Chronic obstructive pulmonary disease. 8. Congestive heart failure, secondary to systolic dysfunction. 9. History of gastritis and reflux esophagitis. PLAN: The patient is on losartan for her hypertension. She is on insulin for diabetes, so we will continue, she is receiving metoprolol for her heart disease and ischemic cardiomyopathy. She is on Neurontin for neuropathy. She is receiving prednisone for her . She is on Synthroid for hypothyroidism. She is on Zoloft. The patient is on a heart-healthy diet. We will see if she qualifies for TCU, otherwise, she has been offered subacute rehab. She gets accepted and will be discharged. Ayan Parham MD
== END 2017-06-23 15:43 | DRG 247 ==
LOC: ED 11:29 → ERH 13:54 → 3RSO 21:14 → OBSVTOIN 06-20 19:58 → 3RSO 06-21 13:27 → 2RSO 06-21 15:04 → 5RNO 06-22 12:36
PROVIDERS: ADMIT Internal Medicine Medical Oncology; ATTEND Internal Medicine Nephrology
PROC: 027034Z Dilation of Coronary Artery, One Artery with Drug-eluting Intraluminal Device, Percutaneous Approach (ICD-10-PCS; principal; 2017-06-21)
PROC: 4A023N7 Measurement of Cardiac Sampling and Pressure, Left Heart, Percutaneous Approach (ICD-10-PCS; 2017-06-21)
PROC: B2111ZZ Fluoroscopy of Multiple Coronary Arteries using Low Osmolar Contrast (ICD-10-PCS; 2017-06-21)
PROC: B2151ZZ Fluoroscopy of Left Heart using Low Osmolar Contrast (ICD-10-PCS; 2017-06-21)
DX: I25.110 Atherosclerotic heart disease of native coronary artery with unstable angina pectoris (principal); I42.0 Dilated cardiomyopathy; I50.22 Chronic systolic (congestive) heart failure; E83.42 Hypomagnesemia; E83.52 Hypercalcemia; I11.0 Hypertensive heart disease with heart failure; T82.855A Stenosis of coronary artery stent, initial encounter; E11.43 Type 2 diabetes mellitus with diabetic autonomic (poly)neuropathy; K31.84 Gastroparesis; K29.70 Gastritis, unspecified, without bleeding; K21.0 Gastro-esophageal reflux disease with esophagitis; E03.9 Hypothyroidism, unspecified; I25.5 Ischemic cardiomyopathy; J44.9 Chronic obstructive pulmonary disease, unspecified; Y83.1 Surgical operation with implant of artificial internal device as the cause of abnormal reaction of the patient, or of later complication, without mention of misadventure at the time of the procedure; Z79.02 Long term (current) use of antithrombotics/antiplatelets; Z79.82 Long term (current) use of aspirin; Z85.3 Personal history of malignant neoplasm of breast; Z86.73 Personal history of transient ischemic attack (TIA), and cerebral infarction without residual deficits; Z95.1 Presence of aortocoronary bypass graft; Z98.84 Bariatric surgery status

== ENCOUNTER 2017-09-21 16:51 | Inpatient (IN) | payer OTHER ==
[2017-09-21 17:10] VITALS: BMI 25.7
[2017-09-21] MEDS ORDERED: Sodium Chloride 0.9% 1,000 ML IV STA (17:36)
--- NOTE | 2017-09-21 17:41 | ED PDOC ---
Arrival/HPI - General Chief Complaint: GI Problem Time Seen by Provider: 09/21/17 17:06 Historian: Patient, Family - History of Present Illness Narrative History of Present Illness (Text): you were treated in the ED today for hx of CHF, Diabetes, Hypertension, Gastroparesis, COPD, Reflux, Heart disease with catheterization 06/21/17 with stent placed proximal LAD but unable to place in distal LAD due to total occlusion, and now having nausea/vomiting with after vomiting since yesterday development of chest pain related to pressure from vomiting but otherwise without any blood in vomiting/headache/dizziness/difficulty breathing/abdomen pain/numbness/tingling/loss of limb function/pain with urination/travel/prior blood clots. Time/Duration: 24 hours Symptom Onset: Gradual Symptom Course: Unchanged, Intermittent Quality: Aching Severity Level: 1 Activities at Onset: Rest Context: Sitting Past Medical History - Provider Review Nursing Documentation Reviewed: Yes - Travel History Have you recently traveled outside [place] w/in the past 3 mons?: No - Infectious Disease Hx of Infectious Diseases: None - Tetanus Immunization Tetanus Immunization: Unknown - Cardiac Hx Cardiac Disorders: Yes Hx Hypertension: Yes - Pulmonary Hx Chronic Obstructive Pulmonary Disease (COPD): Yes Hx Sleep Apnea: Yes - Neurological Other/Comment: Neurostimulator in lower back. Patient states she has had it for a few years. Neuropathy - HEENT Hx HEENT Disorder: Yes (WEARS GLASSES) - Renal Hx Renal Disorder: No (DENIES HISTORY) - Endocrine/Metabolic Hx Diabetes Mellitus Type 2: Yes Hx Hypothyroidism: Yes - Hematological/Oncological Hx Blood Transfusions: Yes Hx Blood Transfusion Reaction: No - Integumentary Hx Dermatological Disorder: Yes - Musculoskeletal/Rheumatological Hx Arthritis: Yes Hx Falls: No Hx Rheumatoid Arthritis: Yes - Gastrointestinal Hx Gastrointestinal Disorders: Yes Hx Gastroesophageal Reflux: Yes Other/Comment: Lapband sx. - Genitourinary/Gynecological Other/Comment: breast cancer, vaginal infections - Psychiatric Hx Emotional Abuse: No Hx Physical Abuse: No Hx Substance Use: No - Surgical History Hx Cardiac Catheterization: Yes Hx Open Heart Surgery: Yes Other/Comment: lapband sx. - Anesthesia Hx Anesthesia Reactions: Yes (SEVERE NUMBNESS LOWER EXT. AFTER C- SECTION) Hx Malignant Hyperthermia: No - Suicidal Assessment Feels Threatened In Home Enviroment: No Family/Social History - Physician Review Nursing Documentation Reviewed: Yes Family/Social History: No Known Family HX Smoking Status: Never Smoked Hx Alcohol Use: No Hx Substance Use: No Hx Substance Use Treatment: No Allergies/Home Meds Allergies/Adverse Reactions: Allergies clarithromycin [From Biaxin] Allergy (Verified 06/18/17 11:37) SWELLING codeine Allergy (Verified 06/18/17 11:37) SWELLING Iodinated Contrast- Oral and IV Dye [Iodinated Contrast Media - IV Dye] Allergy (Verified 06/18/17 11:37) RASH shellfish derived Allergy (Verified 06/18/17 11:37) RASH Home Medications: Home Meds Medication Instructions Recorded Confirmed Alprazolam [Xanax] 0.25 mg PO HS 10/08/12 09/21/17 Aspirin [Ecotrin] 325 mg PO DAILY 10/08/12 09/21/17 Clopidogrel [Plavix] 75 mg PO DAILY 10/08/12 09/21/17 Losartan [Cozaar] 50 mg PO DAILY 10/08/12 09/21/17 Levothyroxine Sodium 112 mcg PO DAILY 10/23/15 09/21/17 Metoprolol Tartrate 25 mg PO BID 10/23/15 09/21/17 Primidone [Mysoline] 50 mg PO HS 10/23/15 09/21/17 Ranolazine [Ranexa] 500 mg PO TID 10/23/15 09/21/17 Rosuvastatin Calcium [Crestor] 20 mg PO DAILY 10/23/15 09/21/17 Gabapentin [Neurontin] 400 mg PO QID 04/12/16 09/21/17 Sertraline [Zoloft] 100 mg PO HS 04/12/16 09/21/17 Cetirizine HCl [Wal-Zyr] 10 mg PO PRN 06/18/17 09/21/17 DULoxetine [Cymbalta] 30 mg PO PRN 06/18/17 09/21/17 Fluticasone Nasal [Flonase] 1 spray NS PRN PRN 06/18/17 09/21/17 Insulin Glargine,Hum.rec.anlog 70 unit SQ HS 06/18/17 09/21/17 [Toualfredo Solostjan] Insulin Lispro [Humalog (Insulin 10 unit SQ TID 06/18/17 09/21/17 Lispro)] Vit D 1.25 1.25 mg PO Q7D 06/18/17 09/21/17 rOPINIRole [Requip] 1 mg PO HS 06/18/17 09/21/17 Omeprazole Magnesium [Prilosec Otc] 1 tab PO DAILY 09/21/17 09/21/17 Review of Systems - Review of Systems Constitutional: Normal Eyes: Normal ENT: Normal Respiratory: Normal Cardiovascular: Chest Pain Gastrointestinal: Nausea, Vomiting Genitourinary Female: Normal Musculoskeletal: Normal Skin: Normal Neurological: Normal Endocrine: Normal Hemo/Lymphatic: Normal Psychiatric: Normal Physical Exam Vital Signs Reviewed: Yes Vital Signs Temp Pulse Resp BP Pulse Ox 09/21/17 17:11 98.2 F 86 18 135/70 98 Temperature: Afebrile Blood Pressure: Hypertensive Pulse: Regular Respiratory Rate: Normal Appearance: Positive for: Well-Appearing, Non-Toxic, Comfortable Pain Distress: None Mental Status: Positive for: Alert and Oriented X 3 - Systems Exam Head: Present: Atraumatic, Normocephalic Pupils: Present: PERRL Extroacular Muscles: Present: EOMI Conjunctiva: Present: Normal Ears: Present: Normal Mouth: Present: Moist Mucous Membranes Pharnyx: Present: Normal Nose (External): Present: Atraumatic Nose (Internal): Present: Normal Inspection Neck: Present: Normal Range of Motion Respiratory/Chest: Present: Clear to Auscultation, Good Air Exchange Cardiovascular: Present: Regular Rate and Rhythm Abdomen: No: Tenderness, Distention, Normal Bowel Sounds, Peritoneal Signs, Rebound, Guarding, McBurney's Point Tender, Rovsing's Sign Present, Hernias, Feeding Tubes, Ostomy Tubes, Mass/Organomegaly, Scars, Other Back: Present: Normal Inspection Upper Extremity: Present: Normal Inspection Lower Extremity: Present: Normal Inspection Neurological: Present: GCS=15, CN II-XII Intact, Speech Normal, Motor Func Grossly Intact Skin: Present: Warm, Normal Color Psychiatric: Present: Alert, Oriented x 3, Normal Insight, Normal Concentration Medical Decision Making ED Course and Treatment: you were treated in the ED today for hx of CHF, Diabetes, Hypertension, Gastroparesis, COPD, Reflux, Heart disease with catheterization 06/21/17 with stent placed proximal LAD but unable to place in distal LAD due to total occlusion, and now having nausea/vomiting with after vomiting since yesterday development of chest pain related to pressure from vomiting but otherwise without any blood in vomiting/headache/dizziness/difficulty breathing/abdomen pain/numbness/tingling/loss of limb function/pain with urination/travel/prior blood clots. You were otherwise breathing easily, smiling and talking with your sister and nephew, good strength/sensation, walking easily, clear lungs, no abdomen tenderness, no fever temp 98.2, stable heart rate 86, stable breathing rate 18, excellent oxygen level 98% room air, elevated blood pressure 130/70 which we recommend repeat in 2-3 days primary care office to determine further treatment, you have blood tests no infection count 7, stable blood level hemoglobin 13/platelets 187, stable chemistry, heart blood test negative less than 0.01, lipase normal 112, urine test pending, radiology chest xray no acute , ECG sinus bradycardia similar to prior, aspirin, zofran, intravenous fluids, observation done in the ED with improvement but patient stated wants to stay for hydration and chest pain evaluation, thus discussed with Dr. Carl who stated can admit for remote telemetry, consult Dr. Mendes who evaluated prior, zofran, ivf. Reassessment Condition: Re-examined, Improved - Lab Interpretations Lab Results: 09/21/17 18:10 09/21/17 18:10 Lab Results 09/21/17 18:10: Sodium 141, Potassium 4.3, Chloride 103, Carbon Dioxide 28, Anion Gap 14, BUN 13, Creatinine 0.9, Est GFR ( Amer) > 60, Est GFR (Non- Af Amer) > 60, Random Glucose 145 H, Calcium 9.9, Magnesium 1.9, Total Bilirubin 0.4, AST 36, ALT 23, Alkaline Phosphatase 71, Lactate Dehydrogenase 376, Total Creatine Kinase 39, Troponin I < 0.01 D, Total Protein 6.9, Albumin 4.1, Globulin 2.7, Albumin/Globulin Ratio 1.5, Lipase 112 09/21/17 18:10: PT 12.6 H, INR 1.10 H, APTT 30.5 09/21/17 18:10: WBC 7.8 D, RBC 4.27, Hgb 13.1, Hct 37.2, MCV 87.1, MCH 30.7, MCHC 35.2, RDW 12.4, Plt Count 187, MPV 9.3, Gran % 66.9, Lymph % (Auto) 23.9, Mercer % (Auto) 6.2 H, Eos % (Auto) 2.7, Baso % (Auto) 0.3, Gran # 5.22, Lymph # ( Auto) 1.9, Mercer # (Auto) 0.5, Eos # (Auto) 0.2, Baso # (Auto) 0.02 09/21/17 17:37: POC Glucose (mg/dL) 138 H I have reviewed the lab results: Yes - RAD Interpretation Radiology Orders: 09/21/17 17:35 CHEST PORTABLE [RAD] Stat Garbage Worker: ED Physician (no acute ) - EKG Interpretation Interpreted by ED Physician: Yes (sinus elan) Type: 12 lead EKG Comparison: Similar to previous EKG (06/21/17) - Medication Orders Current Medication Orders: Discontinued Medications Aspirin (Aspirin) 325 mg PO STAT STA Stop: 09/21/17 17:35 Last Admin: 09/21/17 17:54 Dose: Sodium Chloride (Sodium Chloride 0.9%) 1,000 mls @ 999 mls/hr IV .Q1H1M STA Stop: 09/21/17 18:36 Last Admin: 09/21/17 17:54 Dose: 999 mls/hr eMAR Start Stop Document 09/21/17 17:54 EQ (Rec: 09/21/17 17:55 EQ [id number]) Intravenous Solution Start Date 09/21/17 Start Time 17:55 Ondansetron HCl (Zofran Inj) 4 mg IVP STAT STA Stop: 09/21/17 17:37 Last Admin: 09/21/17 17:55 Dose: 4 mg IVP Administration Document 09/21/17 17:55 EQ (Rec: 09/21/17 17:55 EQ [id number]) Charges for Administration # of IVP Administrations 1 Disposition/Present on Arrival - Present on Arrival Any Indicators Present on Arrival: No History of DVT/PE: No History of Uncontrolled Diabetes: No Urinary Catheter: No History of Decub. Ulcer: No History Surgical Site Infection Following: None - Disposition Have Diagnosis and Disposition been Completed?: Yes Diagnosis: Chest pain, Gastroenteritis Disposition: HOME/ ROUTINE Disposition Time: 20:03 Patient Plan: Admission Condition: IMPROVED Discharge Instructions (ExitCare): Chest Pain (ED) Referrals: Jessica Marsh DO [Primary Care Provider] - Follow up with primary Forms: [employer] (Yakut)
[2017-09-21 18:22] LABS: BASO # 0.02 K/mm3 (0.0-2.0); BASO % 0.3 % (0.0-3.0); EOS # 0.2 (0.0-0.7); EOS % 2.7 % (1.5-5.0); GRAN # 5.22 (1.4-6.5); GRAN % 66.9 % (50.0-68.0); HEMOGLOBIN 13.1 g/dL (12.0-16.0); LYMPH # 1.9 (1.2-3.4); LYMPH % 23.9 % (22.0-35.0); MEAN CELL VOLUME 87.1 fl (80.0-105.0); MEAN CORPUSCULAR HEMOGLOBIN 30.7 pg (25.0-35.0); MEAN CORPUSCULAR HGB CONC 35.2 g/dl (31.0-37.0); MEAN PLATELET VOLUME 9.3 fl (7.0-11.0); MONO # 0.5 (0.1-0.6); MONO % 6.2 % (1.0-6.0); RBC 4.27 10^6/uL (3.5-6.1); RED CELL DISTRIBUTION WIDTH 12.4 % (11.5-14.5); WHITE BLOOD COUNT 7.8 10^3/ul (4.5-11.0)
[2017-09-21 18:29] LABS: INR 1.1 (0.93-1.08); PARTIAL THROMBOPLASTIN TIME 30.5 Seconds (25.1-36.5); PROTHROMBIN TIME 12.6 SECONDS (9.4-12.5)
[2017-09-21 18:30] LABS: ALB/GLOB RATIO 1.5 (1.1-1.8); ALBUMIN 4.1 g/dL (3.0-4.8); ALT/SGPT 23 U/L (7-56); AST/SGOT 36 U/L (14-36); BLOOD UREA NITROGEN 13 mg/dL (7-21); CALCIUM 9.9 mg/dL (8.4-10.5); GFR AFRICAN-AMERICAN > 60; GFR NON-AFRICAN AMERICAN > 60; LIPASE 112 U/L (23-300)
[2017-09-21 18:41] LABS: TROPONIN I < 0.01 ng/mL
[2017-09-21 20:13] LABS: URINE BILIRUBIN NEGATIVE (NEGATIVE); URINE BLOOD NEGATIVE (NEGATIVE); URINE GLUCOSE (UA) NEGATIVE (NEGATIVE); URINE LEUKOCYTE ESTERASE NEGATIVE Leu/uL (NEGATIVE); URINE PROTEIN NEGATIVE mg/dL (<30 mg/dL); URINE UROBILINOGEN 0.2 E.U./dL (<1 E.U./dL)
[2017-09-21 20:19] LABS: URINE APPEARANCE CLEAR (CLEAR); URINE COLOR YELLOW (YELLOW)
[2017-09-21] MEDS: Lactated Ringer's 1,000 ML IV SCH (21:15)
[2017-09-22 00:10] LABS: TROPONIN I 0.02 ng/mL
[2017-09-22] MEDS: Levothyroxine 112 MCG TAB PO SCH (05:07)
[2017-09-22 06:59] LABS: BASO # 0.01 K/mm3 (0.0-2.0); BASO % 0.2 % (0.0-3.0); EOS # 0.2 (0.0-0.7); EOS % 3.1 % (1.5-5.0); GRAN # 3.86 (1.4-6.5); HEMOGLOBIN 12.1 g/dL (12.0-16.0); LYMPH # 1.9 (1.2-3.4); LYMPH % 29.8 % (22.0-35.0); MEAN CELL VOLUME 87.7 fl (80.0-105.0); MEAN CORPUSCULAR HEMOGLOBIN 29.9 pg (25.0-35.0); MEAN CORPUSCULAR HGB CONC 34.1 g/dl (31.0-37.0); MEAN PLATELET VOLUME 9.3 fl (7.0-11.0); MONO # 0.4 (0.1-0.6); MONO % 6.9 % (1.0-6.0); RBC 4.05 10^6/uL (3.5-6.1); RED CELL DISTRIBUTION WIDTH 12.4 % (11.5-14.5); WHITE BLOOD COUNT 6.4 10^3/ul (4.5-11.0)
[2017-09-22 07:27] LABS: ALB/GLOB RATIO 1.4 (1.1-1.8); ALBUMIN 3.7 g/dL (3.0-4.8); ALT/SGPT 23 U/L (7-56); AST/SGOT 35 U/L (14-36); BLOOD UREA NITROGEN 12 mg/dL (7-21); CALCIUM 9.5 mg/dL (8.4-10.5); GFR AFRICAN-AMERICAN > 60; GFR NON-AFRICAN AMERICAN 55
[2017-09-22 07:29] LABS: FREE T4 1.16 ng/dL (0.78-2.19)
[2017-09-22] MEDS: Insulin Lispro (humaLOG) MEDIUM Coverage SC SCH ×4 (07:59→22:08)
--- NOTE | 2017-09-22 08:07 | RAD ---
HISTORY: 72y oF, with chest pain COMPARISON: Comparison chest 06/18/2027 FINDINGS: LUNGS: Lung no clear without focal consolidation. PLEURA: No significant pleural effusion identified, no pneumothorax apparent. CARDIOVASCULAR: Sternotomy wires again seen. Heart appears mildly enlarged. OSSEOUS STRUCTURES: In situ spinal canal pain stimulator electrodes again noted in the lower thoracic region VISUALIZED UPPER ABDOMEN: The clips right upper quadrant of the abdomen consistent with prior cholecystectomy. There also metallic presumed subcutaneous closure bruno overlying the upper abdomen as well. Questionable in situ PEG tube. OTHER FINDINGS: None. IMPRESSION: No acute consolidation.
--- NOTE | 2017-09-22 08:52 | CARD ---
APPROVED REPORT EKG Measurement Heart [id number] <Conclusion> Sinus bradycardia Left anterior fascicular block Anterolateral infarct, age undetermined ST-T Changes.
[2017-09-22] MEDS: Aspirin 325 mg EC Tablets PO SCH (09:32)
[2017-09-22] MEDS: Ranolazine [Ranexa] 500 MG (HOME MED) PO SCH ×3 (09:33→17:13)
--- NOTE | 2017-09-22 10:20 | HP ---
HISTORY OF PRESENT ILLNESS: The patient is a 72-year-old female who states since yesterday she was not feeling well and became nauseous, started to vomit. She had couple of episodes of vomiting yesterday and today she developed retrosternal discomfort with some chest tightness. Also, complained of feeling weak, dizzy with mild shortness of breath. She called her primary care doctor who advised her to come to Emergency Room for further evaluation. Denies any fever or chills, no history of rectal bleeding, no hemoptysis, no hematemesis. . PAST MEDICAL HISTORY: Significant for hypertension, COPD, gastroesophageal reflux disease, coronary artery disease, history of angioplasty and had proximal LAD angioplasty done, insulin dependent diabetes, history of breast cancer. PAST SURGICAL HISTORY: Significant for open heart surgery, and status post lab-band surgery. FAMILY HISTORY: Not relevant. SOCIAL HISTORY: She lives with the family. Denies smoking, drinking or alcohol use. ALLERGIES: SHE IS ALLERGIC TO CLARITHROMYCIN, CODEINE, IODINE AND SHELLFISH. MEDICATIONS AT HOME: 1. She is on insulin. 2. Losartan 50 mg daily. 3. Flonase. 4. Zyrtec. 5. Requip 1 mg at bedtime. 6. Zoloft 100 mg at bedtime. 7. Mysoline 50 mg at bedtime. 8. Prilosec 50 mg daily. 9. Gabapentin 400 two times a day. 10. Cymbalta 30 mg daily. 11. Metoprolol 25 mg twice a day. 12. Levothyroxine 125 mcg daily. 13. Crestor 10 mg daily. 14. Plavix 75 mg daily. 15. Xanax 0.25 daily. 16. Ranexa 500 t.i.d. 17. Aspirin 325 daily. PHYSICAL EXAMINATION: GENERAL: She is awake, alert, oriented, able to communicate. VITAL SIGNS: She is afebrile, pulse 86, respirations 18, blood pressure 135/70. HEART: S1 and S2 audible. LUNGS: Bilateral good airflow. No rhonchi or crackles. ABDOMEN: Soft, nontender, no rebound, no guarding. NEUROLOGIC: She is awake, alert, oriented, communicative. LABORATORY DATA: WBC is 7.8, hemoglobin 13, hematocrit 37, platelets 187. PT 12.6, INR 1.10. Chemistry: Sodium 141, potassium 4.3, chloride 103, CO2 28, BUN 13, creatinine 0.9, blood sugar of 145. Urinalysis is unremarkable. ASSESSMENT: 1. Gastroenteritis. 2. Generalized weakness. 3. Retrosternal chest discomfort. 4. Hypertension. 5. Hyperlipidemia. 6. Coronary artery disease, status post angioplasty. 7. History of coronary artery disease, status post open heart surgery. PLAN: We will keep the patient on liquid diet, we will give her IV fluids. Start Tylenol, Zofran as needed. Follow up cardiac enzymes. Cardiology consult by Dr. Mendes has been requested. Eugenio Carl MD
--- NOTE | 2017-09-22 16:02 | PN ---
DATE: 09/22/2017 SUBJECTIVE: The patient is 72 years old, seen and examined, lying in bed, still have abdominal cramps. Does not have appetite. Although, she did not vomit, had two bowel movements this morning. PHYSICAL EXAMINATION: VITAL SIGNS: She is afebrile. Pulse 63, respirations 20, blood pressure 127/54. LUNGS: Bilateral good airflow. No rhonchi or crackle. HEART: S1 and S2 audible. ABDOMEN: Soft, nontender. No rebound, no guarding. NEUROLOGIC: She is awake and alert, able to communicate. EXTREMITIES: Bilateral leg, no edema. LABORATORY DATA: WBC 6.4, hemoglobin 12, hematocrit 35, platelet 175. Chemistry: Sodium 141, potassium 4, chloride 104, CO2 27, BUN 12, creatinine 1, blood sugar 120. ASSESSMENT: 1. Gastroenteritis. 2. Noncardiac chest pain. 3. Gastroesophageal reflux disease. 4. History of coronary artery disease status post open heart surgery and status post multiple angioplasties. 5. Non-insulin dependent diabetes. PLAN: So, plan is we will continue her on liquid diet. She states she is not ready to advance the diet. I will add Bentyl. We will continue IV fluid and we will advance diet once her nausea subsides. Eugenio Carl MD
--- NOTE | 2017-09-22 17:59 | CON ---
DATE: 09/22/2017 HISTORY HISTORY OF PRESENT ILLNESS: The patient is a 72-year-old woman who presents with 24 hours of nausea and vomiting. The patient's cardiac history includes a history of coronary artery bypass surgery, multivessel PTCA in the past as well as TMR several years ago. Her angina has been well controlled after these procedures. The patient underwent cardiac catheterization in May 2017, where a new stent was placed in the proximal LAD. The distal LAD was totally occluded. LV function revealed an ejection fraction of 40%. Her other cardiac issues include hypothyroidism, hypertension as well as diabetes mellitus and hypercholesterolemia. SOCIAL HISTORY: The patient does not smoke. REVIEW OF SYSTEMS: A 14-point review of systems was reviewed in detail. No angina, no shortness of breath. Negative edema in lower extremities. No other cardiac symptoms. PHYSICAL EXAMINATION: VITAL SIGNS: Blood pressure is 127/54, heart rate in the 60s. NECK: Negative JVD. LUNGS: Clear to auscultation. HEART: Reveals S1, S2. EXTREMITIES: Without edema. DIAGNOSTIC STUDIES: EKG shows normal sinus rhythm with diffuse ST-T changes which are unchanged. Laboratories reveal troponins that are negative x2. Hemoglobin is 12.1, BUN and creatinine are unremarkable. IMPRESSION: 1. Nausea and vomiting, need to rule out gastroenteritis. 2. Stable angina. 3. No evidence for acute coronary syndrome. 4. History of ischemic dilated cardiomyopathy with an ejection fraction of 40%. 5. Multivessel coronary artery disease. 6. Status post multiple percutaneous transluminal coronary angioplasties in the past. 7. Status post coronary artery bypass surgery. 8. Status post transmyocardial laser revascularization. Given these findings, the patient's cardiac status is stable. The patient is receiving some IV fluids with a trial of clear fluids today. Kenji Mendes MD
[2017-09-22] MEDS: Lactated Ringer's 1,000 ML IV SCH ×2 (22:30→23:24)
[2017-09-23] MEDS: Levothyroxine 112 MCG TAB PO SCH (06:33)
[2017-09-23] MEDS: Insulin Lispro (humaLOG) MEDIUM Coverage SC SCH ×4 (07:56→22:08)
[2017-09-23] MEDS: Aspirin 325 mg EC Tablets PO SCH (10:19)
[2017-09-23] MEDS: Ranolazine [Ranexa] 500 MG (HOME MED) PO SCH ×3 (10:21→17:52)
[2017-09-23] MEDS: Lactated Ringer's 1,000 ML IV SCH (12:56)
--- NOTE | 2017-09-23 15:41 | PN ---
DATE: 09/23/2017 CARDIOLOGY FOLLOWUP SUBJECTIVE: The patient is resting comfortably. She is still nauseous. PHYSICAL EXAMINATION: VITAL SIGNS: Blood pressure 158/68 with the heart rates in the 50s. NECK: Negative JVD. LUNGS: Without rales. HEART: Reveals S1, S2. EXTREMITIES: Without edema. LABORATORY DATA: Hemoglobin 12.1. Chemistries: Glucose 128. IMPRESSION: 1. Nausea and vomiting, which is unexplained 2. History of multivessel coronary artery disease. 3. History of coronary artery bypass surgery. 4. History of transmyocardial revascularization. 5. Hypercholesterolemia. PLAN: Given these findings, the patient's cardiac status is stable. We will discontinue telemetry today. Once her GI symptomatology is better, there is no further cardiac workup necessary at this time. Kenji Mendes MD cc: MD Noemi (Delete if not dictated.)
[2017-09-24] MEDS: Levothyroxine 112 MCG TAB PO SCH (05:34)
[2017-09-24] MEDS: Lactated Ringer's 1,000 ML IV SCH (05:35)
--- NOTE | 2017-09-24 06:38 | DS ---
HISTORY OF PRESENT ILLNESS: The patient is a 72-year-old who came in with abdominal discomfort, diarrhea, retrosternal discomfort because of persistent vomiting. Seems to be doing well, unable to tolerate clear liquids, she did not like the taste, and she vomited yesterday, unable to hold anything since last night. Does not have appetite yet. No more abdominal pain. PHYSICAL EXAMINATION: VITAL SIGNS: She is afebrile, pulse 62, respirations 19, blood pressure 122/65. LUNGS: Bilateral good airflow. No rhonchi or crackle. HEART: S1 and S2 audible. ABDOMEN: Soft, nontender. No rebound, no guarding. NEUROLOGIC: The patient is awake and alert, able to communicate, ambulatory. EXTREMITIES: Bilateral leg, no edema. ASSESSMENT: 1. Gastroenteritis, seems to be resolving. 2. Dehydration. 3. Coronary artery disease, status post angioplasty. 4. Gastroesophageal reflux disease. 5. Non-insulin dependent diabetes. PLAN: So, plan is we will advance diet and see if she tolerate, and she might be discharged later on today. If she did not tolerate, she will be admitted for further hydration and we will put her on liquid diet again. Eugenio Carl MD
[2017-09-24] MEDS: Insulin Lispro (humaLOG) MEDIUM Coverage SC SCH ×4 (08:23→22:03)
[2017-09-24] MEDS: Aspirin 325 mg EC Tablets PO SCH (10:29)
[2017-09-24] MEDS: Ranolazine [Ranexa] 500 MG (HOME MED) PO SCH ×3 (10:39→17:46)
[2017-09-24] MEDS ORDERED: Iohexol 240 (50 ml) ONE (15:37)
[2017-09-24] MEDS ORDERED: Barium Sulfate Susp 2.1% w/v, 2.0% w/w 450 mL Bottle PO ONE (15:53)
--- NOTE | 2017-09-24 16:36 | PN ---
DATE: SUBJECTIVE: The patient is 72 years old, she states feeling nauseous, unable to tolerate any food, vomited this morning. No more diarrhea. PHYSICAL EXAMINATION: VITAL SIGNS: She is afebrile, pulse 60, respirations 20, blood pressure 144/75. LUNGS: Bilateral fair airflow. No rhonchi or crackle. HEART: S1 and S2 audible. ABDOMEN: Soft, slight epigastric discomfort and periumbilical discomfort. NEUROLOGICAL: She is awake, alert, oriented, communicative. LABORATORY DATA: Her blood sugar is 170. ASSESSMENT AND PLAN: 1. Intractable nausea, history of gastric banding in the past and it was undone. The patient was okay for 2 years, now she has started the symptoms again. 2. Hypertension. 3. History of coronary artery disease status post angioplasty. PLAN: We will continue the patient on IV fluid. She might need endoscopy or else she may consult Dr. Carroll. I will order for CT of the abdomen and pelvis. Eugenio Carl MD
--- NOTE | 2017-09-24 20:38 | CT ---
EXAM: CT Abdomen and Pelvis Without Intravenous Contrast EXAM DATE/TIME: 09/24/2017 5:20 PM CLINICAL HISTORY: 72 years old, female; Signs and symptoms; Nausea and vomiting; Prior surgery; Surgery date: 6+ months; Surgery type: Band surgury; Additional info: HX band surg, persistent nausea/vomiting. Estimated image count due to issues with pacs TECHNIQUE: Axial computed tomography images of the abdomen and pelvis without intravenous contrast. All CT scans at this facility use one or more dose reduction techniques, viz.: automated exposure control; ma/kV adjustment per patient size (including targeted exams where dose is matched to indication; i.e. head); or iterative reconstruction technique. Coronal and sagittal reformatted images were created and reviewed. COMPARISON: None is available. FINDINGS: LUNG BASES: No significant abnormality seen. HEART: Heart appears mildly enlarged. ABDOMEN: LIVER: No acute abnormality of the liver identified. GALLBLADDER AND BILE DUCTS: Cholecystectomy clips. PANCREAS: No CT evidence of acute pancreatitis. SPLEEN: No acute abnormality of the spleen identified. ADRENALS: No acute abnormality of the adrenal glands identified. KIDNEYS AND URETERS: No acute abnormality of the kidneys seen. STOMACH AND BOWEL: Evidence of prior laparoscopic adjustable gastric banding procedure. The proximal stomach, above the band, is dilated and filled with debris/food material. The band also appears low-lying, located about 6 cm inferior to the gastroesophageal junction. No evidence of gastric perforation. Colonic diverticulosis, with no evidence of acute diverticulitis. Otherwise, no significant abnormality of the bowel is identified. No evidence of small bowel obstruction. PELVIS: APPENDIX: Normal appendix is not seen, however, there are no significant inflammatory changes visualized in the expected location of the appendix to suggest appendicitis. Recommend clinical correlation. BLADDER: Mild thickening of the bladder wall. REPRODUCTIVE:No acute abnormality of the reproductive organs is seen. No acute abnormality of the uterus identified. No evidence of large adnexal masses. ABDOMEN and PELVIS: INTRAPERITONEAL SPACE: No evidence of free intraperitoneal air or fluid. BONES/JOINTS: Bony structures appear demineralized. SOFT TISSUES: Right breast implant. Postsurgical changes involving the right anterior abdominal wall, most likely related to previous hernia repair. No evidence of recurrent hernia. VASCULATURE: Atherosclerotic calcification. No evidence of abdominal aortic aneurysm. LYMPH NODES: No evidence of diffuse lymphadenopathy. TUBES, LINES AND DEVICES: Spinal stimulator device in the right gluteal soft tissues. IMPRESSION: - Evidence of prior laparoscopic adjustable gastric banding procedure, with findings highly suspicious for either a slipped gastric band or an abnormally tight gastric band. The proximal stomach, above the band, is dilated and filled with debris/food material. The band also appears low-lying. Further workup is recommended. - Mild bladder wall thickening. This is a nonspecific finding, but can be seen with cystitis. Recommend clinical correlation. - See above for multiple remaining non-emergent findings.
[2017-09-25] MEDS: Lactated Ringer's 1,000 ML IV SCH ×3 (04:15→16:03)
[2017-09-25] MEDS: Levothyroxine 112 MCG TAB PO SCH (05:23)
[2017-09-25] MEDS: Insulin Lispro (humaLOG) MEDIUM Coverage SC SCH ×3 (08:42→16:33)
[2017-09-25] MEDS: Aspirin 325 mg EC Tablets PO SCH (10:49)
[2017-09-25] MEDS: Ranolazine [Ranexa] 500 MG (HOME MED) PO SCH ×2 (10:52→16:34)
--- NOTE | 2017-09-25 11:24 | PN ---
DATE: 09/25/2017 SUBJECTIVE: The patient has no complaints of any chest pain. No shortness of breath. No headaches or dizziness. PHYSICAL EXAMINATION: VITAL SIGNS: Temperature is 98.2, pulse of 55, blood pressure 143/63, respiration is 20. GENERAL: The patient is lying in bed, flat, comfortable. HEENT: No oral lesion. Anicteric sclerae. Moist mucosa. NECK: No JVD, adenopathy, or thyromegaly. CARDIOVASCULAR: S1 and S2, regular. No murmurs, rubs, or gallops. LUNGS: Clear to auscultation bilaterally. No wheeze, rales, or rhonchi. ABDOMEN: Bowel sounds are positive, soft, nontender and nondistended. EXTREMITIES: No cyanosis, clubbing or edema. LABORATORY DATA: Creatinine is 1. CT of the abdomen and pelvis shows evidence of prior laparoscopic adjustable gastric banding procedure. There is mild bladder wall thickening. The proximal stomach above the band is dilated and filled with debris. ASSESSMENT: 1. Abdominal pain. 2. Nausea, improved. 3. Hypertension. 4. Coronary artery disease. 5. Hypothyroidism. 6. Dyslipidemia. PLAN: The patient is going to be seen by Dr. Carroll for her abdominal issues. She is on losartan for hypertension. The patient is on lactated Ringer's for IV fluids. She is on Lipitor for dyslipidemia. The patient is on Synthroid for hypothyroidism. She is currently n.p.o. We will await further input from Dr. Carroll. Ayan Parham MD
--- NOTE | 2017-09-25 15:01 | PN ---
DATE: 09/25/2017 REQUESTING PHYSICIAN: Eugenio Carl MD. This consult is for Dr. Carroll, Dr. Burroughs covering. SUBJECTIVE: The patient is lying in bed. She feels better after being made n.p.o. She denies any further vomiting. She denies any abdominal pain. PHYSICAL EXAMINATION: VITAL SIGNS: Reveal temperature of 98.2, blood pressure 142/63, heart rate of 55. HEENT: Reveals sclerae to be white. Conjunctivae pink. NECK: Supple. CHEST: Lungs are clear. HEART: Reveals a regular rate and rhythm. ABDOMEN: Soft, nontender. She does have a lap band port in her mid abdomen. EXTREMITIES: Show no edema. LABORATORY DATA: Revealed white blood cell count 6.4, hemoglobin 12.1. Chemistries reveal normal electrolytes. Blood sugar is 156. CT scan of the abdomen and pelvis shows a dilated proximal stomach proximal to a lap band. IMPRESSION: A 72-year-old female with diabetes with intractable vomiting for 3-[address] scan of the abdomen and pelvis shows a dilated proximal stomach above a lap band. I suspect that the lap band is slipped and the patient has an outlet obstruction. RECOMMENDATIONS: 1. Continue n.p.o. 2. The patient will be seen by Dr. Carroll in the morning and most likely have an upper endoscopy. Sidney Burroughs MD
[2017-09-26] MEDS: Insulin Lispro (humaLOG) MEDIUM Coverage SC SCH ×4 (08:43→21:11)
--- NOTE | 2017-09-26 09:25 | CON ---
DATE: 09/24/2017 GASTROENTEROLOGY CONSULTATION This is Dr. Burroughs covering for Dr. Carroll. REASON FOR CONSULTATION: I have been asked to see this 72-year-old female with multiple comorbidities including coronary artery disease, status post coronary artery stent placement and angioplasty of the LAD, type 2 diabetes mellitus, COPD, hypertension; who comes to the hospital with 2 days of nausea and vomiting. Patient had an episode of nausea and vomiting this morning. Patient also came into the hospital with some chest pain. She denies any abdominal pain, hematemesis, melena, or rectal bleeding. She denies any fevers or chills. PAST MEDICAL HISTORY: As above. Again, she has a history of coronary artery disease, status post angioplasty and stent placement of the LAD, insulin-dependent diabetes mellitus, breast cancer, COPD, hypertension, gastroesophageal reflux disease. Patient last had an endoscopy with Dr. Carroll approximately 2 years ago. PAST SURGICAL HISTORY: Notable for coronary artery bypass surgery and lap band. SOCIAL HISTORY: She denies cigarette smoking or alcohol use. FAMILY HISTORY: Noncontributory. REVIEW OF SYSTEM: Fourteen-point review of systems is notable for nausea, vomiting, and chest pain. MEDICATIONS: At home include losartan, insulin, Flonase, Zyrtec, Requip, Zoloft, Mysoline, omeprazole, gabapentin 400 mg twice a day, Cymbalta 30 mg daily, and metoprolol 25 mg twice a day. PHYSICAL EXAMINATION: GENERAL: A well-developed female, lying in bed, in no acute distress. VITAL SIGNS: Reveal a temperature of 97.7, blood pressure 157/75, heart rate 60. HEENT: Reveals sclerae to be white. Conjunctivae are pink. NECK: Supple. CHEST: Reveal lungs to be clear. HEART: Reveals regular rate and rhythm. ABDOMEN: Soft, nontender. No mass. EXTREMITIES: Show no edema. LABORATORY DATA: Reveal normal electrolytes. Blood sugar was 120. CBC reveals white blood cell count 6.4, hemoglobin 12.1, platelet count 175,000. IMPRESSION: A 72-year-old female with coronary artery disease, diabetes mellitus, chronic obstructive pulmonary disease, history of breast cancer with intractable vomiting for the last 3 days; she had episode of vomiting this morning, one must rule out diabetic gastroparesis. RECOMMENDATIONS: 1. We will request a CT scan of the abdomen and pelvis. Sidney Burroughs MD [facility] # [id number] [place]
[2017-09-26] MEDS ORDERED: Labetalol 5 mg/ml Inj 20ML IV ONE ×2 (10:13→10:30)
[2017-09-26] MEDS ORDERED: Labetalol 5 mg/ml Inj 20ML ONE (10:26)
[2017-09-26] MEDS: Aspirin 325 mg EC Tablets PO SCH (12:01)
[2017-09-26] MEDS: Ranolazine [Ranexa] 500 MG (HOME MED) PO SCH ×3 (12:38→18:11)
[2017-09-26] MEDS: Sodium Chloride 0.9% 1,000 ML IV SCH (15:16)
--- NOTE | 2017-09-26 16:29 | PN ---
DATE: 09/26/2017 SUBJECTIVE: The patient is a 72-year-old, seen and examined in Recovery, doing well. Sleepy, but arousable. OBJECTIVE: VITAL SIGNS: She is afebrile, pulse 70, respirations 18, blood pressure 158/76. LUNGS: Bilateral good airflow. No rhonchi or crackle. HEART: S1 and S2 audible. ABDOMEN: Soft, slight epigastric discomfort. NEUROLOGICAL: She is awake, alert, oriented, communicative. LABORATORY DATA: Blood sugar is 111. Urine culture is positive for gram-positive cocci, identification to follow. Stool for C. diff is negative. The patient had endoscopy done that shows gastric pouch 5 cm wide with a large gastric gastric band. IMPRESSION: 1. She has nonbleeding superficial duodenal ulcer with clean ulcer base. Large amount of food residue was also found in the gastric fundus, that was removed. Status post gastric banding that appears to be tight. 2. Status post intractable nausea. 3. Coronary artery disease, status post angioplasty. PLAN: So, plan is we will continue the patient on PPI. We will start her on pureed diet and she needs to see her bariatric surgeon. We will follow her electrolyte intermittently and continue her on IV fluids. Eugenio Carl MD
--- NOTE | 2017-09-26 18:59 | CP.PCM.PN ---
Subjective - Date & Time of Evaluation Date of Evaluation: 09/26/17 Time of Evaluation: 18:58 - Subjective Subjective: PGY-[address] Carl cc: Rash in L arm, new onset S: 72 F s/p EGD today found imtiaz 3 nonbleeding duodenal and intact gastric banding. She received labetalol for high BP in the endo suite. At 6:45pm, RN paged me for pt's new rash, faint lacy, no itch, on L arm where the IV is. Pt denies noticing the rash, denies ROSENTHAL, dizziness, CP, SOB, N/V/D/C, numbness/itch/ tingling. O: 98.7 HR 74, 109/66, RR 18, 97%RA GEN: NAD, enjoying dinner HEENT: No erythema, No swelling, mouth mucosa normal and moist Card: regular s1 s2 Pulm: CTA b/l, no w/r/r GI: soft, NTND Ext: no edema Skin: L arm, forearm, and back of palm with faint lacy rash with exoriation ott. IV intact. No exudate No rash in trunck, back, RUE, or LE b/l A/P: Likely allergic reaction with labetalol - benadryl 25 iv x 1 - claritin 10mg x 1 - No need for solumedrol for now. Pt is diabetic - Continue Observe - Avoid labetalol for HTN control - Communicated with Dr carl Objective - Vital Signs/Intake and Output Vital Signs (last 24 hours): Temp Pulse Resp BP Pulse Ox 98.7 F 74 18 109/66 97 09/26/17 16:20 09/26/17 16:20 09/26/17 16:20 09/26/17 16:20 09/26/17 16:20 Intake and Output: 09/26/17 09/26/17 06:59 18:59 Intake Total 0 Balance 0 - Medications Medications: Current Medications Acetaminophen (Tylenol 325mg Tab) 650 mg PO Q6H PRN PRN Reason: Fever >100.4 F Alprazolam (Xanax) 0.25 mg PO HS [facility] PRN Reason: Protocol Stop: 09/28/17 22:46 Last Admin: 09/25/17 23:12 Dose: 0.25 mg Aspirin (Ecotrin) 325 mg PO DAILY [facility] Last Admin: 09/26/17 12:01 Dose: 325 mg Atorvastatin Calcium (Lipitor) 80 mg PO DIN [facility] Last Admin: 09/26/17 18:11 Dose: 80 mg Clopidogrel Bisulfate (Plavix) 75 mg PO DAILY [facility] Last Admin: 09/26/17 12:01 Dose: 75 mg Dicyclomine HCl (Bentyl) 10 mg PO BID [facility] Last Admin: 09/26/17 18:07 Dose: 10 mg Diphenhydramine HCl (Benadryl) 25 mg IVP ONCE ONE Stop: 09/26/17 19:01 Duloxetine HCl (Cymbalta) 30 mg PO DAILY [facility] Last Admin: 09/26/17 12:01 Dose: 30 mg Sodium Chloride (Sodium Chloride 0.9%) 1,000 mls @ 100 mls/hr IV .Q10H [facility] Last Admin: 09/26/17 15:16 Dose: 100 mls/hr Insulin Human Lispro (Humalog Med) 0 units SC [facility] PRN Reason: Protocol Last Admin: 09/26/17 18:08 Dose: Not Given Levothyroxine Sodium (Synthroid) 112 mcg PO 0600 [facility] Last Admin: 09/25/17 05:23 Dose: 112 mcg Losartan Potassium (Cozaar) 50 mg PO DAILY [facility] Last Admin: 09/26/17 12:01 Dose: 50 mg Metoprolol Tartrate (Lopressor) 25 mg PO BID [facility] Last Admin: 09/26/17 18:11 Dose: 25 mg Ranolazine [Ranexa] (500 Mg (Home Med)) 500 mg PO TID [facility] Last Admin: 09/26/17 18:11 Dose: Not Given Ondansetron HCl (Zofran Inj) 4 mg IVP Q8 PRN PRN Reason: Nausea/Vomiting Last Admin: 09/25/17 23:13 Dose: 4 mg Pantoprazole Sodium (Protonix Ec Tab) 40 mg PO 0630 [facility] Primidone (Mysoline) 50 mg PO HS [facility] Last Admin: 09/25/17 22:12 Dose: 50 mg Ropinirole HCl (Requip) 1 mg PO HS [facility] Last Admin: 09/25/17 22:30 Dose: 1 mg Sertraline HCl (Zoloft) 100 mg PO HS [facility] Last Admin: 09/25/17 22:05 Dose: 100 mg - Labs Labs: PT 12.6 SECONDS (9.4-12.5) H 09/21/17 18:10 INR 1.10 (0.93-1.08) H 09/21/17 18:10 APTT 30.5 Seconds (25.1-36.5) 09/21/17 18:10
[2017-09-26] MEDS ORDERED: DiphenhydrAMINE 50 mg/ml Inj IVP ONE (19:00)
--- NOTE | 2017-09-26 21:05 | PN ---
DATE: 09/26/2017 CARDIOLOGY FOLLOWUP SUBJECTIVE: The patient is status post endoscopy, reports noted. PHYSICAL EXAMINATION: VITAL SIGNS: The patient is without dyspnea. Blood pressure varies from 158-173 systolic. Heart rate is in the 70s. NECK: Negative JVD. LUNGS: Without rales. HEART: Reveals S1, S2. EXTREMITIES: Without edema. LABORATORY DATA: Hemoglobin is 12.1. Glucose is 127. IMPRESSION: 1. Nausea and vomiting secondary to her lap band. 2. Ischemic dilated cardiomyopathy. 3. Coronary artery disease. 4. Hypertension. Given these findings, her blood pressure should be better once we are able to resume her p.o. medications. Kenji Mendes MD
[2017-09-27] MEDS: Pantoprazole 40 mg EC Tab PO SCH (05:37)
[2017-09-27] MEDS: Levothyroxine 112 MCG TAB PO SCH (05:37)
[2017-09-27 06:47] LABS: BASO # 0.01 K/mm3 (0.0-2.0); BASO % 0.1 % (0.0-3.0); EOS # 0.2 (0.0-0.7); EOS % 2.7 % (1.5-5.0); GRAN # 4.38 (1.4-6.5); GRAN % 61.7 % (50.0-68.0); HEMOGLOBIN 12.4 g/dL (12.0-16.0); LYMPH # 1.8 (1.2-3.4); LYMPH % 25.7 % (22.0-35.0); MEAN CELL VOLUME 85.2 fl (80.0-105.0); MEAN CORPUSCULAR HEMOGLOBIN 30.5 pg (25.0-35.0); MEAN CORPUSCULAR HGB CONC 35.8 g/dl (31.0-37.0); MEAN PLATELET VOLUME 9.6 fl (7.0-11.0); MONO # 0.7 (0.1-0.6); MONO % 9.8 % (1.0-6.0); RBC 4.06 10^6/uL (3.5-6.1); RED CELL DISTRIBUTION WIDTH 12.5 % (11.5-14.5); WHITE BLOOD COUNT 7.1 10^3/ul (4.5-11.0)
[2017-09-27 07:04] LABS: ALB/GLOB RATIO 1.3 (1.1-1.8); ALBUMIN 3.6 g/dL (3.0-4.8); ALT/SGPT 25 U/L (7-56); AST/SGOT 42 U/L (14-36); BLOOD UREA NITROGEN 12 mg/dL (7-21); GFR AFRICAN-AMERICAN > 60; GFR NON-AFRICAN AMERICAN > 60
[2017-09-27] MEDS: Aspirin 325 mg EC Tablets PO SCH (09:39)
[2017-09-27] MEDS: Sodium Chloride 0.9% 1,000 ML IV SCH (09:41)
[2017-09-27] MEDS: Insulin Lispro (humaLOG) MEDIUM Coverage SC SCH ×4 (11:24→22:05)
[2017-09-27] MEDS: Ranolazine [Ranexa] 500 MG (HOME MED) PO SCH ×3 (11:25→17:32)
--- NOTE | 2017-09-27 11:29 | PN ---
DATE: 09/27/2017 SUBJECTIVE: SUBJECTIVE: The patient with an episode of nausea and vomiting today. PHYSICAL EXAMINATION: VITAL SIGNS: Blood pressure 140/70, heart rates in the 60s. NECK: Negative JVD. LUNGS: Without rales. HEART: S1 and S2. EXTREMITIES: Without edema. LABORATORY DATA: Hemoglobin is 12.4. Chemistries: BUN and creatinine is stable. Glucose is 172. IMPRESSION: 1. Ischemic dilated cardiomyopathy. 2. Coronary artery disease. 3. History of coronary artery bypass surgery. 4. Transmyocardial revascularization. 5. History of hypertension. Given these findings, the patient's cardiac status is stable. Her symptoms are predominately GI. No further cardiac intervention is necessary at this time. Kenji Mendes MD
--- NOTE | 2017-09-27 13:38 | CP.PCM.PN ---
Subjective - Date & Time of Evaluation Date of Evaluation: 09/27/17 Time of Evaluation: 10:55 - Subjective Subjective: Seen and examined at the bedside earlier this morning, chart reviewed. Patient had an endoscopy yesterday and found to have duodenitis, duodenal ulcers, gastric pouch bezoar. Patient tolerated dinner last night but this morning she had some eggs and aiyana just about a spoon and vomited. No reports of any hematemesis. No abdominal pain. Patient did have a bowel movement this morning no diarrhea. Objective - Vital Signs/Intake and Output Vital Signs (last 24 hours): Temp Pulse Resp BP Pulse Ox 97.9 F 60 20 140/70 94 L 09/27/17 08:24 09/27/17 11:27 09/27/17 08:24 09/27/17 11:27 09/27/17 08:24 Intake and Output: 09/27/17 09/27/17 06:59 18:59 Intake Total 1740 120 Balance 1740 120 - Medications Medications: Current Medications Acetaminophen (Tylenol 325mg Tab) 650 mg PO Q6H PRN PRN Reason: Fever >100.4 F Alprazolam (Xanax) 0.25 mg PO HS [facility] PRN Reason: Protocol Stop: 09/28/17 22:46 Last Admin: 09/26/17 22:00 Dose: 0.25 mg Aspirin (Ecotrin) 325 mg PO DAILY [facility] Last Admin: 09/27/17 09:39 Dose: 325 mg Atorvastatin Calcium (Lipitor) 80 mg PO DIN [facility] Last Admin: 09/26/17 18:11 Dose: 80 mg Clopidogrel Bisulfate (Plavix) 75 mg PO DAILY [facility] Last Admin: 09/27/17 09:39 Dose: 75 mg Dicyclomine HCl (Bentyl) 10 mg PO BID [facility] Last Admin: 09/27/17 09:39 Dose: 10 mg Duloxetine HCl (Cymbalta) 30 mg PO DAILY [facility] Last Admin: 09/27/17 09:39 Dose: 30 mg Sodium Chloride (Sodium Chloride 0.9%) 1,000 mls @ 100 mls/hr IV .Q10H [facility] Last Admin: 09/27/17 09:41 Dose: 100 mls/hr Insulin Human Lispro (Humalog Med) 0 units SC [facility] PRN Reason: Protocol Last Admin: 09/27/17 11:25 Dose: Not Given Levothyroxine Sodium (Synthroid) 112 mcg PO 0600 [facility] Last Admin: 09/27/17 05:37 Dose: 112 mcg Losartan Potassium (Cozaar) 50 mg PO DAILY [facility] Last Admin: 09/27/17 09:39 Dose: 50 mg Metoprolol Tartrate (Lopressor) 25 mg PO BID [facility] Last Admin: 09/27/17 11:27 Dose: 25 mg Ranolazine [Ranexa] (500 Mg (Home Med)) 500 mg PO TID [facility] Last Admin: 09/27/17 11:25 Dose: Not Given Ondansetron HCl (Zofran Inj) 4 mg IVP Q8 PRN PRN Reason: Nausea/Vomiting Last Admin: 09/27/17 09:39 Dose: 4 mg Pantoprazole Sodium (Protonix Ec Tab) 40 mg PO 0630 [facility] Last Admin: 09/27/17 05:37 Dose: 40 mg Primidone (Mysoline) 50 mg PO [facility] Last Admin: 09/26/17 22:01 Dose: 50 mg Ropinirole HCl (Requip) 1 mg PO [facility] Last Admin: 09/26/17 22:01 Dose: 1 mg Sertraline HCl (Zoloft) 100 mg PO [facility] Last Admin: 09/26/17 22:00 Dose: 100 mg - Labs Labs: 09/27/17 06:00 09/27/17 06:00 PT 12.6 SECONDS (9.4-12.5) H 09/21/17 18:10 INR 1.10 (0.93-1.08) H 09/21/17 18:10 APTT 30.5 Seconds (25.1-36.5) 09/21/17 18:10 - Constitutional Appears: No Acute Distress - Head Exam Head Exam: NORMOCEPHALIC - Eye Exam Eye Exam: Normal appearance. absent: Scleral icterus - ENT Exam ENT Exam: Mucous Membranes Moist - Neck Exam Neck Exam: Normal Inspection - Respiratory Exam Respiratory Exam: NORMAL BREATHING PATTERN. absent: Respiratory Distress - Cardiovascular Exam Cardiovascular Exam: +S1, +S2 - GI/Abdominal Exam GI & Abdominal Exam: Soft, Normal Bowel Sounds. absent: Guarding, Tenderness, Rebound - Extremities Exam Extremities Exam: absent: Calf Tenderness, Pedal Edema - Neurological Exam Neurological Exam: Alert, Awake, Oriented x3 - Skin Skin Exam: Dry, Warm Assessment and Plan - Assessment and Plan (Free Text) Assessment: Assessment: Intractable nausea and vomiting Status post endoscopy: Duodenitis/duodenal ulcer: no bleeding/gastric pouch, bezoar Diabetes mellitus Coronary artery disease status post angioplasty Plan: Diet as tolerated on pured diet On Plavix Monitor electrolytes Continue GI prophylaxis Recommend bariatric surgical evaluation upon discharge Seen and discussed with Dr. Carroll.
--- NOTE | 2017-09-27 18:40 | PN ---
DATE: 09/27/2017 SUBJECTIVE: The patient is 72 years old, had endoscopy done yesterday, had multiple bezoars removed. She was found to have narrowing at the site of band. The patient was started on pureed diet that she was not able to tolerate she vomited everything that was given pureed this morning. No abdominal pain. OBJECTIVE: VITAL SIGNS: She is afebrile, pulse 60, respirations 20, blood pressure 140/70. LUNGS: Bilateral good airflow. No rhonchi or crackle. HEART: S1 and S2 audible. ABDOMEN: Soft, nontender. No rebound or guarding. Slight discomfort in the periumbilical area. NEUROLOGIC: She is awake, alert, oriented, communicative. LABORATORY EXAMINATION: WBC 7.1, hemoglobin 12, hematocrit 34, and platelets 177. Chemistry: Sodium 133, potassium 3.8, chloride 101, CO2 of 23. BUN 12, creatinine 0.9. Blood sugar of 162. ASSESSMENT: 1. Intractable nausea and vomiting. 2. History of gastric bypass. 3. Status post endoscopy and bezoar removal. 4. Coronary artery disease. 5. Status post angioplasty and open heart surgery. PLAN: We will continue her on IV fluids and I will talk to Dr. Carroll. Probably, she surgical intervention and we will follow up this patient in a.m. Eugenio Carl MD
[2017-09-28] MEDS: Sodium Chloride 0.9% 1,000 ML IV SCH (00:15)
[2017-09-28] MEDS: Levothyroxine 112 MCG TAB PO SCH (05:28)
[2017-09-28] MEDS: Pantoprazole 40 mg EC Tab PO SCH (05:29)
[2017-09-28 07:59] VITALS: RESP 20; TEMP 98; O2SAT 95
[2017-09-28] MEDS: Insulin Lispro (humaLOG) MEDIUM Coverage SC SCH ×2 (08:30→11:44)
[2017-09-28] MEDS ORDERED: Benzocaine/Menthol (Cepacol) Lozenge MT PRN (11:07)
[2017-09-28] MEDS: Aspirin 325 mg EC Tablets PO SCH (11:23)
[2017-09-28] MEDS: Ranolazine [Ranexa] 500 MG (HOME MED) PO SCH ×2 (11:30→15:07)
[2017-09-28 11:33] VITALS: BP 160/80; PULSE 58
--- NOTE | 2017-09-28 13:59 | PN ---
DATE: 09/28/2017 CARDIOLOGY FOLLOWUP SUBJECTIVE: The patient has not vomited on a liquid diet so far. OBJECTIVE: VITAL SIGNS: Blood pressure is 160/80, heart rate in the 60s. NECK: Negative JVD. LUNGS: Clear to auscultation. HEART: S1, S2. EXTREMITIES: Without edema. LABORATORY DATA: Hemoglobin is 12.4. Chemistries: Glucose 195. IMPRESSION: 1. Recurrent nausea and vomiting secondary to her previous bariatric surgery. 2. History of coronary artery bypass graft. 3. Multivessel coronary artery disease. 4. History of transmyocardial revascularization. 5. Stable angina. Given these findings, the patient is to return to her bariatric surgeon for surgical correction to alleviate her nausea and vomiting. No further cardiac workup is indicated at this time. Kenji Mendes MD
--- NOTE | 2017-09-28 14:11 | CP.PCM.PN ---
Subjective - Date & Time of Evaluation Date of Evaluation: 09/28/17 Time of Evaluation: 10:30 - Subjective Subjective: Seen and examined at the bedside earlier today, chart review. Patient still has some nausea, did not take any of clear liquid breakfast. No complaint of abdominal pain or recent vomiting. She did complain of a sore throat no fever, likely from endoscopy. Objective - Vital Signs/Intake and Output Vital Signs (last 24 hours): Temp Pulse Resp BP Pulse Ox 98 F 58 L 20 160/80 H 95 09/28/17 07:58 09/28/17 11:23 09/28/17 07:58 09/28/17 11:23 09/28/17 07:58 Intake and Output: 09/28/17 09/28/17 06:59 18:59 Intake Total 1740 120 Balance 1740 120 - Medications Medications: Current Medications Acetaminophen (Tylenol 325mg Tab) 650 mg PO Q6H PRN PRN Reason: Fever >100.4 F Alprazolam (Xanax) 0.25 mg PO HS [facility] PRN Reason: Protocol Stop: 09/28/17 22:46 Last Admin: 09/27/17 22:09 Dose: 0.25 mg Aspirin (Ecotrin) 325 mg PO DAILY [facility] Last Admin: 09/28/17 11:23 Dose: 325 mg Atorvastatin Calcium (Lipitor) 80 mg PO DIN [facility] Last Admin: 09/27/17 17:32 Dose: 80 mg Benzocaine/Menthol (Cepacol Sore Throat) 1 lucrecia MT Q2H PRN PRN Reason: Sore Throat Last Admin: 09/28/17 11:43 Dose: 1 lucrecia Clopidogrel Bisulfate (Plavix) 75 mg PO DAILY [facility] Last Admin: 09/28/17 11:23 Dose: 75 mg Dicyclomine HCl (Bentyl) 10 mg PO BID [facility] Last Admin: 09/28/17 11:24 Dose: 10 mg Duloxetine HCl (Cymbalta) 30 mg PO DAILY [facility] Last Admin: 09/28/17 11:24 Dose: 30 mg Sodium Chloride (Sodium Chloride 0.9%) 1,000 mls @ 100 mls/hr IV .Q10H [facility] Last Admin: 09/28/17 00:15 Dose: Not Given Insulin Human Lispro (Humalog Med) 0 units SC ACHS [facility] PRN Reason: Protocol Last Admin: 09/28/17 11:44 Dose: 1 units Levothyroxine Sodium (Synthroid) 112 mcg PO 0600 [facility] Last Admin: 09/28/17 05:28 Dose: 112 mcg Losartan Potassium (Cozaar) 50 mg PO DAILY [facility] Last Admin: 09/28/17 11:23 Dose: 50 mg Metoprolol Tartrate (Lopressor) 25 mg PO BID [facility] Last Admin: 09/28/17 11:23 Dose: 25 mg Ranolazine [Ranexa] (500 Mg (Home Med)) 500 mg PO TID [facility] Last Admin: 09/28/17 11:30 Dose: Not Given Ondansetron HCl (Zofran Inj) 4 mg IVP Q8 PRN PRN Reason: Nausea/Vomiting Last Admin: 09/27/17 09:39 Dose: 4 mg Pantoprazole Sodium (Protonix Ec Tab) 40 mg PO 0630 [facility] Last Admin: 09/28/17 05:29 Dose: 40 mg Primidone (Mysoline) 50 mg PO [facility] Last Admin: 09/27/17 22:10 Dose: 50 mg Ropinirole HCl (Requip) 1 mg PO [facility] Last Admin: 09/27/17 22:09 Dose: 1 mg Sertraline HCl (Zoloft) 100 mg PO [facility] Last Admin: 09/27/17 22:10 Dose: 100 mg - Labs Labs: 09/27/17 06:00 09/27/17 06:00 PT 12.6 SECONDS (9.4-12.5) H 09/21/17 18:10 INR 1.10 (0.93-1.08) H 09/21/17 18:10 APTT 30.5 Seconds (25.1-36.5) 09/21/17 18:10 - Constitutional Appears: No Acute Distress - Head Exam Head Exam: absent: NORMOCEPHALIC - Eye Exam Eye Exam: Normal appearance. absent: Scleral icterus - ENT Exam ENT Exam: Mucous Membranes Moist - Neck Exam Neck Exam: Normal Inspection - Respiratory Exam Respiratory Exam: NORMAL BREATHING PATTERN. absent: Respiratory Distress - Cardiovascular Exam Cardiovascular Exam: +S1, +S2 - GI/Abdominal Exam GI & Abdominal Exam: Soft, Normal Bowel Sounds. absent: Guarding, Tenderness, Rebound - Extremities Exam Extremities Exam: absent: Calf Tenderness, Pedal Edema - Neurological Exam Neurological Exam: Alert, Awake, Oriented x3 Assessment and Plan - Assessment and Plan (Free Text) Assessment: Assessment: Intractable nausea and vomiting Status post endoscopy: Duodenitis/duodenal ulcer: no bleeding/gastric pouch, bezoar Diabetes mellitus Coronary artery disease status post angioplasty Plan: on clear liquids, encourage to take small amounts and advance as tolerated On Plavix Monitor electrolytes Continue GI prophylaxis Start Cepacol lozenges discussed with patient to see bariatric surgeon upon discharge patient endorses that her surgeon was at [place] Seen and discussed with Dr. Carroll
--- NOTE | 2017-09-29 15:05 | DS ---
HISTORY OF PRESENT ILLNESS: Patient is a 72-year-old female with history of gastric bypass, came in because of gastroenteritis, abdominal pain, intractable vomiting. She was kept n.p.o., was given IV fluids for 2 days. She was started on clear liquid that she tolerated. When the diet was advanced, she started to vomit. GI consult was done by Dr. Carroll who did endoscopy and found that she has duodenal ulcer and some scarring at the previous band area where she has lap band procedure done. Patient was given pureed food, but she could not tolerate that either. PHYSICAL EXAMINATION: GENERAL: On examination today, she is awake, alert, oriented, communicative. VITAL SIGNS: She is afebrile. Pulse 68, respirations 20, blood pressure 160/80. LUNGS: Bilaterally good air flow. No rhonchi or crackles. HEART: S1 and S2 audible. ABDOMEN: Soft, slight periumbilical discomfort. No rebound. No guarding. NEUROLOGIC: She is awake, alert, oriented, communicative, ambulatory. LABORATORY EXAMINATION: Chemistry: Today, blood sugar is 195. ASSESSMENT: 1. Intractable nausea and vomiting. 2. Status post endoscopy showing duodenal ulcer. 3. Coronary artery disease status post angioplasty. 4. History of open heart surgery. 5. History of gastric bypass. PLAN: Patient is being sent home on clear liquid. She has an appointment with her bariatric surgeon on Tuesday. We will give all the tests done in hospital, so she can be evaluated by him as outpatient. For now, she is on clear liquid to thick liquid diet and she will continue her usual medication at home that include insulin, losartan, ropinirole, Sertraline, Primidone, omeprazole, gabapentin and metoprolol, levothyroxine, Plavix and Crestor. Eugenio Carl MD
== END 2017-09-28 15:25 | disposition home or self-care (01) | DRG 392 ==
LOC: ED 16:51 → ERH 20:07 → 2RSO 09-22 00:41 → OBSVTOIN 09-23 13:17 → 3RNO 09-23 14:45
PROVIDERS: ADMIT Internal Medicine; ATTEND Internal Medicine
PROC: 0DC68ZZ Extirpation of Matter from Stomach, Via Natural or Artificial Opening Endoscopic (ICD-10-PCS; principal; 2017-09-26 09:00)
DX: K52.9 Noninfective gastroenteritis and colitis, unspecified (principal); I42.0 Dilated cardiomyopathy; E86.0 Dehydration; K21.9 Gastro-esophageal reflux disease without esophagitis; J44.9 Chronic obstructive pulmonary disease, unspecified; E78.5 Hyperlipidemia, unspecified; E78.00 Pure hypercholesterolemia, unspecified; E03.9 Hypothyroidism, unspecified; I25.118 Atherosclerotic heart disease of native coronary artery with other forms of angina pectoris; I25.5 Ischemic cardiomyopathy; K26.9 Duodenal ulcer, unspecified as acute or chronic, without hemorrhage or perforation; K29.80 Duodenitis without bleeding; E11.43 Type 2 diabetes mellitus with diabetic autonomic (poly)neuropathy; K31.84 Gastroparesis; I10 Essential (primary) hypertension; Z85.3 Personal history of malignant neoplasm of breast; Z98.84 Bariatric surgery status; Z95.1 Presence of aortocoronary bypass graft; Z95.5 Presence of coronary angioplasty implant and graft; Z79.02 Long term (current) use of antithrombotics/antiplatelets; Z79.82 Long term (current) use of aspirin

== ENCOUNTER 2017-11-06 18:48 | Emergency (ER) | payer OTHER ==
[2017-11-06 19:06] VITALS: BMI 24.0
--- NOTE | 2017-11-06 19:16 | ED PDOC ---
Arrival/HPI - General Time Seen by Provider: 11/06/17 18:53 Historian: Patient - History of Present Illness Narrative History of Present Illness (Text): 11/06/17 19:07 A 72 year old female, whose past medical history includes CHF, diabetes, hypertension, gastroparesis, COPD, GERD, and catheterization (06/21/2017 with stent placed proximal LAD), presents to the emergency department complaining of hypoglycemia. Patient reports lapband slipped off and patient has been unable to eat and resulted in vomiting. Patient is scheduled for lapband removal . Later on, patient took insulin injection (3 times/daily) before supper and resulted in becoming hypoglycemic. EMS arrived and gave patient glucose in the field. Here in the ER, patient's blood sugar level is 98. Patient denies any other complaints at this time. No PMD Past Medical History - Provider Review Nursing Documentation Reviewed: Yes - Infectious Disease Hx of Infectious Diseases: None - Tetanus Immunization Tetanus Immunization: Unknown - Cardiac Hx Pacemaker: No - Pulmonary Hx Chronic Obstructive Pulmonary Disease (COPD): Yes Hx Sleep Apnea: Yes - Neurological Hx Paralysis: No - HEENT Hx HEENT Disorder: Yes (WEARS GLASSES) - Renal Hx Renal Disorder: No (DENIES HISTORY) - Endocrine/Metabolic Hx Diabetes Mellitus Type 2: Yes Hx Hypothyroidism: Yes - Hematological/Oncological Hx Blood Transfusions: Yes Hx Blood Transfusion Reaction: No - Integumentary Hx Dermatological Disorder: Yes - Musculoskeletal/Rheumatological Hx Musculoskeletal Disorders: Yes - Gastrointestinal Hx Gastrointestinal Disorders: Yes Hx Gastroesophageal Reflux: Yes Hx Liver Failure: Yes - Genitourinary/Gynecological Other/Comment: breast cancer, vaginal infections - Psychiatric Hx Emotional Abuse: No Hx Physical Abuse: No Hx Substance Use: No - Surgical History Hx Coronary Stent: Yes (14 stents) Hx Open Heart Surgery: Yes - Anesthesia Hx Anesthesia Reactions: Yes (SEVERE NUMBNESS LOWER EXT. AFTER C- SECTION) Hx Malignant Hyperthermia: No - Suicidal Assessment Feels Threatened In Home Enviroment: No Family/Social History - Physician Review Nursing Documentation Reviewed: Yes Family/Social History: No Known Family HX Smoking Status: Never Smoked Hx Alcohol Use: No Hx Substance Use: No Hx Substance Use Treatment: No Allergies/Home Meds Allergies/Adverse Reactions: Allergies clarithromycin [From Biaxin] Allergy (Verified 11/06/17 20:04) SWELLING codeine Allergy (Verified 11/06/17 20:04) SWELLING Iodinated Contrast- Oral and IV Dye [Iodinated Contrast Media - IV Dye] Allergy (Verified 11/06/17 20:04) RASH labetalol Allergy (Verified 11/06/17 20:04) RASH shellfish derived Allergy (Verified 11/06/17 20:04) RASH Home Medications: Home Meds Medication Instructions Recorded Confirmed Aspirin [Ecotrin] 325 mg PO DAILY 10/08/12 11/06/17 Clopidogrel [Plavix] 75 mg PO DAILY 10/08/12 11/06/17 Losartan [Cozaar] 50 mg PO DAILY 10/08/12 11/06/17 Levothyroxine Sodium 112 mcg PO DAILY 10/23/15 11/06/17 Metoprolol Tartrate 25 mg PO BID 10/23/15 11/06/17 Primidone [Mysoline] 50 mg PO HS 10/23/15 11/06/17 Ranolazine [Ranexa] 500 mg PO TID 10/23/15 11/06/17 Rosuvastatin Calcium [Crestor] 20 mg PO DAILY 10/23/15 11/06/17 Sertraline [Zoloft] 100 mg PO HS 04/12/16 11/06/17 Cetirizine HCl [Wal-Zyr] 10 mg PO PRN 06/18/17 11/06/17 DULoxetine [Cymbalta] 30 mg PO PRN 06/18/17 11/06/17 Insulin Glargine,Hum.rec.anlog 70 unit SQ HS 06/18/17 11/06/17 [Toujeo Solostar] Insulin Lispro [Humalog (Insulin 10 unit SQ TID 06/18/17 11/06/17 Lispro)] Vit D 1.25 1.25 mg PO Q7D 06/18/17 11/06/17 rOPINIRole [Requip] 1 mg PO HS 06/18/17 11/06/17 Omeprazole Magnesium [Prilosec Otc] 1 tab PO DAILY 09/21/17 11/06/17 Acetaminophen [Acetaminophen Extra 500 mg PO TID PRN 11/06/17 11/06/17 Strength] Review of Systems - Physician Review All systems were reviewed & negative as marked: Yes - Review of Systems Constitutional: absent: Fevers, Night Sweats Respiratory: absent: SOB, Cough Cardiovascular: absent: Chest Pain, Palpitations Gastrointestinal: Vomiting. absent: Abdominal Pain, Stool Changes, Diarrhea, Nausea Genitourinary Female: absent: Urine Output Changes Neurological: absent: Headache, Dizziness Physical Exam Vital Signs Pulse Pulse Ox 11/06/17 19:43 54 L 96 Appearance: Positive for: Well-Appearing Pain Distress: None Mental Status: Positive for: Alert and Oriented X 3 - Systems Exam Head: Present: Atraumatic, Normocephalic Pupils: Present: PERRL Extroacular Muscles: Present: EOMI Conjunctiva: Present: Normal Mouth: Present: Moist Mucous Membranes Neck: Present: Normal Range of Motion Respiratory/Chest: Present: Clear to Auscultation, Good Air Exchange. No: Respiratory Distress, Accessory Muscle Use Cardiovascular: Present: Regular Rate and Rhythm, Normal S1, S2. No: Murmurs Abdomen: No: Tenderness, Distention, Peritoneal Signs Back: Present: Normal Inspection Upper Extremity: Present: Normal Inspection. No: Cyanosis, Edema Lower Extremity: Present: Normal Inspection. No: Edema Neurological: Present: GCS=15, CN II-XII Intact, Speech Normal Skin: Present: Warm, Dry, Normal Color. No: Rashes Psychiatric: Present: Alert, Oriented x 3, Normal Insight, Normal Concentration Medical Decision Making ED Course and Treatment: 11/06/17 19:11 Impression: 72 year old female with hypoglycemia. No acute findings on physical exam. Plan: -- Fingerstick -- Reassess and disposition Prior Visits: Notes and results from previous visits were reviewed. Patient was last seen in the emergency department on 09/23/2017 for nausea and vomiting. Patient was discharged home. Progress Notes: - Scribe Statement The provider has reviewed the documentation as recorded by the Marvin Larios Provider Scribe Attestation: All medical record entries made by the Marvin were at my direction and personally dictated by me. I have reviewed the chart and agree that the record accurately reflects my personal performance of the history, physical exam, medical decision making, and the department course for this patient. I have also personally directed, reviewed, and agree with the discharge instructions and disposition. Disposition/Present on Arrival - Present on Arrival Any Indicators Present on Arrival: No History of DVT/PE: No History of Uncontrolled Diabetes: No Urinary Catheter: No History Surgical Site Infection Following: None - Disposition Have Diagnosis and Disposition been Completed?: Yes Diagnosis: Hypoglycemia Disposition: HOME/ ROUTINE Disposition Time: 20:12 Patient Plan: Discharge Condition: GOOD Discharge Instructions (ExitCare): Low Blood Sugar, Adult (DC), Low Blood Sugar in People With Diabetes Additional Instructions: Mrs Galaviz - Thanks for allowing us to care for you. Return to us if any problems. Best- Dr. Gunnar Vasquez
[2017-11-06 21:13] VITALS: BP 106/60; PULSE 55; RESP 18; TEMP 98.9; O2SAT 98
== END 2017-11-06 21:11 | disposition home or self-care (01) ==
LOC: ED 18:48
DX: E11.649 Type 2 diabetes mellitus with hypoglycemia without coma (principal); Z79.4 Long term (current) use of insulin; I10 Essential (primary) hypertension; I50.9 Heart failure, unspecified; J44.9 Chronic obstructive pulmonary disease, unspecified

== ENCOUNTER 2018-07-21 15:16 | Inpatient (IN) | payer OTHER ==
[2018-07-21 15:23] VITALS: BMI 27.2
[2018-07-21] MEDS ORDERED: Nitroglycerin 2% Ointment Foilpak UD TOP STA (15:42)
--- NOTE | 2018-07-21 15:43 | ED PDOC ---
Arrival/HPI - General Chief Complaint: Chest Pain Time Seen by Provider: 07/21/18 15:24 Historian: Patient - History of Present Illness Narrative History of Present Illness (Text): 07/21/18 15:40 A 73 year old female, whose past medical history includes CABBG, multiple stents, and an LAD lesion (from a year ago in May), presents to the emergency department complaining of intermittent chest pain for the past week. Patient also notes mild shortness of breath. Patient reports she saw her outpatient cap and hat production supervisor last week who told her not to worry about her symptoms however the symptoms persisted prompting her to go to the ER. Patient notes the longest episode of chest pain lasted around 30 minutes and reports she has taken her aspirin and plavix today. Patient reports she is an ex-smoker and does not drink alcohol. Patient denies any dizziness, nausea, vomiting, diaphoresis, or any other complaints. Chair Spring Assembler: Dr. Mendes PMD: Dr. Marsh Time/Duration: 1 week Symptom Onset: Gradual Symptom Course: Unchanged Activities at Onset: Light Context: Home Associated Symptoms (Text): 07/21/18 15:51 Approximately 1 week history of intermittent chest pain lasting on the order of 30 minutes. Known coronary artery disease with CABG and multiple stents, last was an LAD lesion in May 2017. There is some dyspnea. No diaphoresis. No dizziness or lightheadedness. No nausea or vomiting. She did take her aspirin and Plavix this morning. Past Medical History - Provider Review Nursing Documentation Reviewed: Yes - Infectious Disease Hx of Infectious Diseases: None - Tetanus Immunization Tetanus Immunization: Unknown - Reproductive Menopause: Yes - Cardiac Hx Pacemaker: No - Pulmonary Hx Chronic Obstructive Pulmonary Disease (COPD): Yes Hx Sleep Apnea: Yes - Neurological Hx Paralysis: No - HEENT Hx HEENT Disorder: Yes (WEARS GLASSES) - Renal Hx Renal Disorder: No (DENIES HISTORY) - Endocrine/Metabolic Hx Diabetes Mellitus Type 2: Yes Hx Hypothyroidism: Yes - Hematological/Oncological Hx Blood Transfusions: Yes Hx Blood Transfusion Reaction: No - Integumentary Hx Dermatological Disorder: Yes - Musculoskeletal/Rheumatological Hx Musculoskeletal Disorders: Yes - Gastrointestinal Hx Gastrointestinal Disorders: Yes Hx Gastroesophageal Reflux: Yes Hx Liver Failure: Yes - Genitourinary/Gynecological Other/Comment: breast cancer, vaginal infections - Psychiatric Hx Emotional Abuse: No Hx Physical Abuse: No Hx Substance Use: No - Surgical History Hx Coronary Stent: Yes (14 stents) Hx Open Heart Surgery: Yes - Anesthesia Hx Anesthesia Reactions: Yes (SEVERE NUMBNESS LOWER EXT. AFTER C- SECTION) Hx Malignant Hyperthermia: No - Suicidal Assessment Feels Threatened In Home Enviroment: No Family/Social History - Physician Review Nursing Documentation Reviewed: Yes Family/Social History: No Known Family HX Smoking Status: Former Smoker Hx Alcohol Use: No Hx Substance Use: No Hx Substance Use Treatment: No Allergies/Home Meds Allergies/Adverse Reactions: Allergies clarithromycin [From Biaxin] Allergy (Verified 11/06/17 20:04) SWELLING codeine Allergy (Verified 11/06/17 20:04) SWELLING Iodinated Contrast- Oral and IV Dye [Iodinated Contrast Media - IV Dye] Allergy (Verified 11/06/17 20:04) RASH labetalol Allergy (Verified 11/06/17 20:04) RASH shellfish derived Allergy (Verified 11/06/17 20:04) RASH Home Medications: Home Meds Medication Instructions Recorded Confirmed Aspirin [Ecotrin] 325 mg PO DAILY 10/08/12 07/21/18 Clopidogrel [Plavix] 75 mg PO DAILY 10/08/12 07/21/18 Losartan [Cozaar] 50 mg PO DAILY 10/08/12 07/21/18 Levothyroxine Sodium 112 mcg PO DAILY 10/23/15 07/21/18 Metoprolol Tartrate 25 mg PO BID 10/23/15 07/21/18 Primidone [Mysoline] 50 mg PO HS 10/23/15 07/21/18 Ranolazine [Ranexa] 500 mg PO TID 10/23/15 07/21/18 Rosuvastatin Calcium [Crestor] 20 mg PO DAILY 10/23/15 07/21/18 Sertraline [Zoloft] 100 mg PO HS 04/12/16 07/21/18 Cetirizine HCl [Wal-Zyr] 10 mg PO PRN 06/18/17 07/21/18 DULoxetine [Cymbalta] 30 mg PO PRN 06/18/17 07/21/18 Insulin Glargine,Hum.rec.anlog 80 unit SQ HS 06/18/17 07/21/18 [Toujeo Solostar] Insulin Lispro [Humalog (Insulin 20 unit SQ TID 06/18/17 07/21/18 Lispro)] Vit D 1.25 1.25 mg PO Q7D 06/18/17 07/21/18 rOPINIRole [Requip] 1 mg PO HS 06/18/17 07/21/18 Omeprazole Magnesium [Prilosec Otc] 1 tab PO DAILY 09/21/17 07/21/18 Acetaminophen [Acetaminophen Extra 500 mg PO TID PRN 11/06/17 07/21/18 Strength] ALPRAZolam [Xanax] 0.25 mg PO PRN PRN 07/21/18 07/21/18 Fluticasone Nasal [Flonase] 0 mg NS HS 07/21/18 07/21/18 Gabapentin [Neurontin] 400 mg PO QID 07/21/18 07/21/18 MetFORMIN [glucOPHAGE] 0 mg PO BID 07/21/18 07/21/18 Review of Systems - Physician Review All systems were reviewed & negative as marked: Yes - Review of Systems Constitutional: Fatigue. absent: Fevers Respiratory: SOB (mild shortness of breath), Cough. absent: Sputum, Wheezing Cardiovascular: Chest Pain. absent: Palpitations, Syncope Gastrointestinal: absent: Abdominal Pain, Nausea, Vomiting Neurological: absent: Headache, Dizziness, Focal Weakness Endocrine: absent: Diaphoresis Physical Exam Vital Signs Reviewed: Yes Vital Signs Pulse Resp BP Pulse Ox 07/21/18 15:16 69 18 126/73 97 Temperature: Afebrile Blood Pressure: Normal Pulse: Regular Respiratory Rate: Normal Appearance: Positive for: Well-Appearing, Uncomfortable Pain Distress: Mild Mental Status: Positive for: Alert and Oriented X 3 - Systems Exam Head: Present: Atraumatic, Normocephalic Pupils: Present: PERRL Extroacular Muscles: Present: EOMI Conjunctiva: Present: Normal Ears: Present: NORMAL TM, Normal Canal. No: Erythema, TM Bulging Mouth: Present: Moist Mucous Membranes Pharnyx: No: ERYTHEMA, EXUDATE, TONSILS ENLARGED Respiratory/Chest: Present: Clear to Auscultation, Good Air Exchange. No: Respiratory Distress, Accessory Muscle Use, Tender to Palpation Cardiovascular: Present: Regular Rate and Rhythm, Normal S1, S2. No: Murmurs Abdomen: No: Tenderness, Distention, Peritoneal Signs, Rebound, Guarding Upper Extremity: Present: Normal Inspection. No: Cyanosis, Edema Lower Extremity: Present: Normal Inspection. No: Edema Neurological: Present: GCS=15, CN II-XII Intact, Speech Normal, Motor Func Grossly Intact Skin: Present: Warm, Dry, Normal Color. No: Rashes Psychiatric: Present: Alert, Oriented x 3, Normal Insight, Normal Concentration Medical Decision Making ED Course and Treatment: 07/21/18 15:45 Impression: 73 year old female presenting to the [facility] department complaining of intermittent chest pain. Plan: -- EKG -- Labs -- CBC -- COAGs -- Chest X-ray -- Nitroglycerin -- Reassess and disposition Prior Visits: Notes and results from previous visits were reviewed. Progress Notes: 07/21/18 16:39 Procedure: Chest X-ray Dictator: Dakota Guidry Impression: No active disease. 07/21/18 17:[address] Carl who will admit to telemetry and consult with cardiology Dr. Mendes and endocrinology Dr. Arias. Consults have been ordered for her. - Scribe Statement The provider has reviewed the documentation as recorded by the Scribe Jessie Grier All medical record entries made by the Scribe were at my direction and personally dictated by me. I have reviewed the chart and agree that the record accurately reflects my personal performance of the history, physical exam, medical decision making, and the department course for this patient. I have also personally directed, reviewed, and agree with the discharge instructions and disposition. Disposition/Present on Arrival - Present on Arrival Any Indicators Present on Arrival: No History of DVT/PE: No History of Uncontrolled Diabetes: No Urinary Catheter: No History of Decub. Ulcer: No History Surgical Site Infection Following: None - Disposition Have Diagnosis and Disposition been Completed?: Yes Diagnosis: Chest pain, Hyperglycemia due to type 1 diabetes mellitus Disposition: HOSPITALIZED Disposition Time: 17:02 Patient Plan: Admission, Telemetry Condition: FAIR Discharge Instructions (ExitCare): Chest Pain (ED) Forms: [employer] (Qatari)
[2018-07-21 16:09] LABS: BASO # 0.01 K/mm3 (0.0-2.0); BASO % 0.1 % (0.0-3.0); EOS # 0.2 (0.0-0.7); EOS % 1.9 % (1.5-5.0); HEMOGLOBIN 13.1 g/dL (12.0-16.0); LYMPH % 22.4 % (22.0-35.0); MEAN CELL VOLUME 88.4 fl (80.0-105.0); MEAN PLATELET VOLUME 9.6 fl (7.0-11.0); MONO # 0.4 (0.1-0.6); MONO % 4.5 % (1.0-6.0); RBC 4.23 10^6/uL (3.5-6.1); RED CELL DISTRIBUTION WIDTH 12.7 % (11.5-14.5); WHITE BLOOD COUNT 9.1 10^3/uL (4.5-11.0)
[2018-07-21 16:19] LABS: INR 1.15; PARTIAL THROMBOPLASTIN TIME 31.1 Seconds (26.9-38.3); PROTHROMBIN TIME 12.8 SECONDS (9.4-12.5)
[2018-07-21 16:27] LABS: ALB/GLOB RATIO 1.5 (1.1-1.8); ALBUMIN 4.2 g/dL (3.0-4.8); ALT/SGPT 10 U/L (7-56); AST/SGOT 29 U/L (14-36); BLOOD UREA NITROGEN 16 mg/dL (7-21); CALCIUM 10.1 mg/dL (8.4-10.5); GFR NON-AFRICAN AMERICAN > 60
[2018-07-21] MEDS ORDERED: Sodium Chloride 0.9% 1,000 ML IV ONE (16:28)
[2018-07-21] MEDS ORDERED: Insulin Regular 1 UNITS/0.01 ML ML IV STA (16:29)
[2018-07-21 16:30] LABS: B-TYPE NATRIURETIC PEPTIDE 291 pg/mL (0-450); TROPONIN I < 0.01 ng/mL
--- NOTE | 2018-07-21 16:31 | RAD ---
Date of service: 07/21/2018 HISTORY: cp COMPARISON: 09/21/2017 FINDINGS: LUNGS: No active pulmonary disease. PLEURA: No significant pleural effusion identified, no pneumothorax apparent. CARDIOVASCULAR: No aortic atherosclerotic calcification present. Mild cardiomegaly no pulmonary vascular congestion. OSSEOUS STRUCTURES: Sternal wires VISUALIZED UPPER ABDOMEN: Normal. OTHER FINDINGS: None. IMPRESSION: No active disease.
[2018-07-21] MEDS ORDERED: Influenza Vaccine 60 mcg/0.5 mL SYR (4YR UP) IM ONE (21:32)
[2018-07-21] MEDS ORDERED: Pneumococcal 23-Valent Vaccine IM ONE (21:32)
[2018-07-21] MEDS ORDERED: INSULIN GLARGINE HUM REC ANLOG 80 UNIT SQ SCH (22:00)
[2018-07-21] MEDS ORDERED: Insulin Lispro (HUMAlog) HIGH Coverage SC SCH (22:00)
[2018-07-21] MEDS ORDERED: Insulin Detemir 100 units/ml Vial (Levemir) SC SCH (22:00)
--- NOTE | 2018-07-21 23:21 | CARD ---
APPROVED REPORT Date of service: 07/21/2018 EKG Measurement Heart [id number] <Conclusion> Normal sinus rhythm Left anterior fascicular block Anterolateral infarct, age undetermined Abnormal ECG
[2018-07-22] MEDS ORDERED: Insulin Regular 1 UNITS/0.01 ML ML SC STA (02:20)
--- NOTE | 2018-07-22 04:13 | CON ---
DATE: 07/21/2018 ENDOCRINOLOGY CONSULT HISTORY OF PRESENT ILLNESS: diabetes, type 2 insulin requiring diabetes, is transferred here with sudden onset of precordial chest pain, and progressively worsening till the time of admission, and is now being referred for diabetic evaluation and management because of marked hyperglycemic accelerations as noted there of. PAST MEDICAL HISTORY: History of significant cardiac vasculopathy with previous coronary artery bypass graft surgery with subsequent multiple coronary stent placements. She is being followed closely by Dr. Mendes as an outpatient. History of hypertension and dyslipidemia, history of type 2 insulin-requiring diabetes on a combination of Lantus taken as 80 units at bedtime with Humalog taken as 20 units t.i.d. before meals and with metformin at 1 g b.i.d. History of hypertension and dyslipidemia. History of hypothyroidism with levothyroxine taken as 112 mcg daily, history of generalized anxiety, on anxiolytic medications, history of chronic obstructive lung disease and also concomitant sleep apnea with previous admissions for exacerbations of the same. FAMILY HISTORY: Positive for hypertension and heart disease. SOCIAL HISTORY: Patient has supportive family and also a former smoker. REVIEW OF SYSTEMS: Admits to generalized body weakness with episodic bouts of dizziness and lightheadedness, worse in the last few days prior to admission. Also admits to progressive shortness of breath especially on exertion. Moreover, admits to intermittent precordial chest pain in the last 2 to 3 days prior to admission, but worse on the day of admission lasting about half an hour with supervening shortness of breath, prompting this ER consult and subsequent admission. Her oral intake has been variable with occasional dyspepsia and also has habitual constipation. Also admits to polyuria, nocturia, and polydipsia, again worse on the day of admission. Moreover, admits to lower extremity painful paraesthesias especially nocturnally. PHYSICAL EXAMINATION GENERAL: An average-build female in no apparent distress. VITAL SIGNS: Blood pressure of 140/90, pulse of 90 beats per minute regular, temperature 98, respirations 20. Weight 149 pounds. HEENT: Head normocephalic. Eyes anicteric with pink conjunctivae. Funduscopy not possible at this time. Ears, nose and throat otherwise normal. NECK: Supple. Thyroid gland is normal in size. No carotid bruits or any cervical adenopathy. CARDIOPULMONARY: There is adynamic precordium. S1, S2 is rapid and regular. LUNGS: Clear to auscultation. ABDOMEN: Flat, soft, with positive bowel sounds. EXTREMITIES: No peripheral edema. Pulses are +2 bilaterally. LABORATORY DATA: Her chemistries showed BUN of 16, sodium 131, potassium 5. . ASSESSMENT: This is a 73-year-old female with uncontrolled and decompensated type 2 insulin-requiring diabetes presenting here with marked hyperglycemic accelerations, precordial chest pain, shortness of breath, and with underlying significant coronary artery disease and multiple coronary stent placements and with prior coronary artery bypass graft surgery. She also has diabetic microvascular consultations for retinopathy and polyneuropathy, was carried out with microvascular consultations for coronary artery disease and peripheral arterial disease and vasculopathy. PLAN OF MANAGEMENT: We will modify her covering basal scale with PTU to a higher dosing of her basal insulin in the hospital and bolus insulin drug combination to optimize metabolic control. We will increase the Levemir to 30 units subcu at bedtime daily to start tonight. We will also add Prandin insulin with Humalog to be given as 12 units t.i.d. before meals to start tomorrow morning as ordered. We will modify the current coverage scale to a very low dose algorithm using Humalog insulin to obviate hypoglycemia and detailed orders have been given. We will discontinue her metformin therapy especially with the possibility of a cardiac cath procedure to be undertaken. We will obtain serial chemistries and supplement accordingly as needed. We will obtain a hemoglobin A1c to confirm her prior glycemic control and baseline thyroid function studies have been ordered. We will modify her levothyroxine dose accordingly. We will also add a lipid panel for tomorrow morning. We will obtain serial chemistries and supplement accordingly as needed. We will follow. Viry Arias MD
[2018-07-22 07:11] LABS: TROPONIN I < 0.01 ng/mL
[2018-07-22 07:12] LABS: LDL CHOLESTEROL 47 mg/dL (0-129)
[2018-07-22 07:16] LABS: FREE T4 0.86 ng/dL (0.78-2.19)
[2018-07-22 07:26] LABS: BASO # 0.01 K/mm3 (0.0-2.0); BASO % 0.1 % (0.0-3.0); EOS # 0.3 (0.0-0.7); EOS % 3.4 % (1.5-5.0); HEMOGLOBIN 12.6 g/dL (12.0-16.0); LYMPH # 2.2 (1.2-3.4); LYMPH % 26.7 % (22.0-35.0); MEAN CELL VOLUME 88.3 fl (80.0-105.0); MEAN PLATELET VOLUME 9.7 fl (7.0-11.0); MONO # 0.6 (0.1-0.6); MONO % 6.7 % (1.0-6.0); RBC 4.2 10^6/uL (3.5-6.1); RED CELL DISTRIBUTION WIDTH 12.8 % (11.5-14.5); WHITE BLOOD COUNT 8.2 10^3/uL (4.5-11.0)
[2018-07-22 07:36] LABS: ALB/GLOB RATIO 1.4 (1.1-1.8); ALBUMIN 3.9 g/dL (3.0-4.8); ALT/SGPT 13 U/L (7-56); AST/SGOT 32 U/L (14-36); BLOOD UREA NITROGEN 17 mg/dL (7-21); CALCIUM 9.6 mg/dL (8.4-10.5); GFR NON-AFRICAN AMERICAN > 60; HDL CHOLESTEROL 49 mg/dL (29-60)
[2018-07-22] MEDS: Insulin Lispro 1 UNITS/0.01 ML SC SCH ×3 (09:14→17:12)
[2018-07-22] MEDS: Insulin Lispro (humaLOG) LOW Coverage SC SCH ×4 (09:14→22:46)
[2018-07-22] MEDS: Levothyroxine 112 MCG TAB PO SCH (09:58)
[2018-07-22] MEDS: Aspirin 325 mg EC Tablets PO SCH (09:58)
[2018-07-22] MEDS ORDERED: Non Formulary Medication (Ranolazine [Ranexa] 500 MG) PO SCH (10:00)
[2018-07-22] MEDS ORDERED: Non Formulary Medication (Rosuvastatin Calcium [Crestor] 20 MG) PO SCH (10:00)
[2018-07-22] MEDS: Enoxaparin 60 mg Syringe SC SCH ×2 (12:01→22:51)
--- NOTE | 2018-07-22 14:01 | PN ---
DATE: 07/22/2018 LOCATION: Room 261. SUBJECTIVE: This is a 73-year-old female with recent uncontrolled type 2 insulin-requiring diabetes presenting here with recurrent and progressively worsening precordial chest pain and is now undergoing cardiac workup and management. Moreover, she also presented with hyperglycemic accelerations and is being followed closely also for metabolic management. Her glycemic levels are elevated as noted overnight and the latest chemistry showed a BUN of 17, sodium 135, potassium 4.3, chloride 100, CO2 of 28, glucose 321 and creatinine 0.8. Her thyroxine level showed a TSH of 4.04 with a free T4 of 0.86 indicative of subclinical hypothyroidism. Her overnight glucose levels showed a fasting glucose today of 321 mg/dL. ASSESSMENT: This is a 73-year-old female with uncontrolled and decompensated type 2 insulin-requiring diabetes with marked hyperglycemic accelerations, presenting here with acute coronary syndrome on the background of a significant cardiac vasculopathy with prior multiple coronary stent placements and a previous coronary artery bypass graft surgery. PLAN OF MANAGEMENT: We modify once again her basal and bolus insulin regimen and actually add Humalog given as 12 units t.i.d. before meals to start this morning at breakfast time as ordered. We will also increase her basal insulin with Levemir to be given as 40 units subcu at bedtime daily as given and this will be started also today as noted. We will continue the low-dose correction scale using a modified and lower Humalog coverage scale as ordered. We will obtain serial chemistries and supplement accordingly as needed. We will follow. Viry Arias MD
[2018-07-22 14:09] LABS: TROPONIN I < 0.01 ng/mL
--- NOTE | 2018-07-22 15:59 | PN ---
DATE: 07/22/2018 SUBJECTIVE: The patient is 73-year-old who came to emergency room because of chest pressure and shortness of breath. She was evaluated by a barrel centerer in their group and was told everything is alright, but the patient states she has continued to have chest pressure and shortness of breath, so she came to ER for further evaluation. The patient states she has been compliant with her medication; however, her blood sugar was found to be above 500. PHYSICAL EXAMINATION: GENERAL: She awake, alert, oriented, able to communicate. VITAL SIGNS: She is afebrile, pulse 60,respiration 18, blood pressure 149/71. LUNGS: Bilateral fair airflow. No rhonchi or crackles. HEART: S1 and S2 audible. ABDOMEN: Soft, nontender, no rebound, no guarding. NEUROLOGICAL: She is awake, alert, oriented, able to communicate. LABORATORY DATA: WBC 8.2, hemoglobin 12.6, hematocrit 37.1, platelets 177. PT 12.8, INR 1.15. Sodium 135, potassium 4.3, chloride 100, CO2 of 28, BUN 17, creatinine 0.8, blood sugar of 321. Thyroid profile is within normal limits. Two sets of troponin is negative. ASSESSMENT: 1. Chest pain, rule out underlying ischemia. 2. Poorly controlled diabetes. 3. Hypertension. 4. Hyperlipidemia. 5. Diabetic neuropathy. 6. Hypothyroidism. 7. Mild pulmonary hypertension. PLAN: Currently, the patient is on losartan 50 daily, we will continue that. She is on Cymbalta for neuropathy. She is on aspirin. Blood sugar is being monitored by Dr. Hugo Baires. She is on statin. She is on beta-blockers. She is on primidone. She is on gabapentin, Plavix and discontinue IV Protonix and switch it to p.o. Will be reevaluated by barrel centerer and plan for stress test on Tuesday. Eugenio Carl MD
[2018-07-22 20:58] LABS: URINE BILIRUBIN NEGATIVE (NEGATIVE); URINE BLOOD NEGATIVE (NEGATIVE); URINE GLUCOSE (UA) NEGATIVE (NEGATIVE); URINE LEUKOCYTE ESTERASE SMALL Leu/uL (NEGATIVE); URINE PROTEIN TRACE mg/dL (<30 mg/dL); URINE UROBILINOGEN 0.2 E.U./dL (<1 E.U./dL)
[2018-07-22 21:02] LABS: URINE APPEARANCE CLEAR (CLEAR); URINE COLOR YELLOW (YELLOW)
[2018-07-22 21:11] LABS: URINE EPITHELIAL CELLS 0 - 2 /hpf (0-5); URINE RBC 0 - 2 /hpf (0-2)
--- NOTE | 2018-07-22 21:35 | CON ---
DATE: 07/22/2018 CARDIOLOGY CONSULTATION COVERING FOR: Dr. Kenji Mendes. REASON FOR CONSULTATION: Chest pain, history of coronary artery disease, multiple history of CABG, and cardiac evaluation. BRIEF CLINICAL HISTORY: This is a 73-year-old female with past medical history significant for coronary artery bypass surgery, history of multiple stent, last stent in LAD a year ago, admitted with complaint of chest pain, and radiating to arm. Last stress test a year ago. She denies any further episode of chest pain, shortness of breath or any palpitation. PAST MEDICAL HISTORY: Significant for coronary artery disease, history of multiple stents, history of TIA, and history of CABG. PAST SURGICAL HISTORY: Significant for coronary artery bypass surgery possibly in 2005, history of right breast cancer status post lumpectomy, status post reconstruction surgery. SOCIAL HISTORY: Denies smoking. Denies any history of alcohol abuse. ALLERGIES: ALLERGIC TO CODEINE, CLARITHROMYCIN, AND SHELLFISH. RECENT CARDIAC WORKUP: As follows; the patient had echocardiography on 06/20/2017, that revealed systolic function mildly impaired, arrhythmia effects, diastolic dysfunction, mild pulmonary hypertension, diastolic pressure reported 33. Systolic function mildly impaired, calculated ejection fraction 45% dated 06/20/2017, by Dr. Regalado. The patient had cardiac catheterization last one done by Dr. Kenji Mendes dated 06/21/2017, that revealed dominant vessels, multiple stent which are patent. Left main unremarkable, circumflex artery free of significant disease, LAD was occluded in mid portion and whole LAD was treated with stent. In the proximal portion of the LAD prior to separate sdc teacher in diagonal 80% stenosis noted. LV function 40%. At that time, the PTCA of the proximal LAD with drug eluting stent was placed and mid and distal LAD was unsuccessful in crossing. Medical treatment recommended. CURRENT MEDICATIONS: The patient is taking at home; Requip, vitamin D, , Ranexa, omeprazole, metoprolol, metformin, levothyroxine, insulin, gabapentin, Plavix, and aspirin. REVIEW OF SYSTEMS: As per HPI. PHYSICAL EXAMINATION: VITAL SIGNS: Height of the patient 5 feet 2 inches, weight of the patient 146 pounds, and body mass index 26.8 kg/m2. Temperature afebrile, heart rate 60, and blood pressure 149/71. HEENT: PERRLA. Extraocular muscles intact. NECK: Supple. No carotid bruit or thyromegaly. CHEST: Clear to auscultation. HEART: S1 and S2 regular. ABDOMEN: Soft. EXTREMITIES: Clubbing and cyanosis, negative. LABORATORY DATA: Blood workup as follows; WBC 8.2, hemoglobin 12.6, hematocrit 37.1, and platelet count 177. Chemistry shows sodium 135, potassium , carbon dioxide 28, anion gap 11, BUN 17, creatinine 0.8. Troponin 0.01. IMPRESSION: A 73-year-old female with past medical history significant for coronary artery disease, status post coronary artery bypass grafting in the past, history of multiple stents, most recent stent in 05/2017 with totally occluded left anterior descending, mid and distal unable to cross stent with proximal left anterior descending. Patent stent multiple in right coronary artery no significant disease in circumflex, decreased left ventricular ejection fraction around 40%, admitted with chest pain, unstable angina. RECOMMENDATIONS: Treated the unstable angina, also the patient uncontrolled diabetes, blood sugar 570. Aggressive medical treatment, follow up serial CPK and troponin. If serial CPK and troponin remains flat, consider stress test. We will turnover care to Dr. Mendes on Tuesday. For now, we will treat as unstable angina with ACC guideline for unstable angina including Lovenox, aspirin, and Plavix. We will follow with you. We will transfer care on Tuesday to Dr. Mendes. We will add Lovenox in the current treatment regimen. We will follow serial CPK and troponin, as well as hemoglobin A1c and lipid profile. EKG shows normal sinus, left axis deviation, poor R-wave progression, no acute ST-T changes noted. We will also get troponin at [address] Mendes for providing us the opportunity in taking care of the patient, Salena Galaviz. Kimberly Maya MD
[2018-07-22] MEDS ORDERED: Insulin Detemir 100 units/ml Vial (Levemir) SC SCH (22:00)
[2018-07-23] MEDS: Pantoprazole 40 mg EC Tab PO SCH (06:45)
[2018-07-23 07:07] LABS: BASO # 0.01 K/mm3 (0.0-2.0); BASO % 0.1 % (0.0-3.0); EOS # 0.2 (0.0-0.7); EOS % 2.8 % (1.5-5.0); HEMOGLOBIN 12.8 g/dL (12.0-16.0); LYMPH # 2.2 (1.2-3.4); MEAN CELL VOLUME 88.4 fl (80.0-105.0); MEAN CORPUSCULAR HEMOGLOBIN 30.2 pg (25.0-35.0); MEAN CORPUSCULAR HGB CONC 34.1 g/dl (31.0-37.0); MEAN PLATELET VOLUME 9.7 fl (7.0-11.0); MONO # 0.4 (0.1-0.6); MONO % 5.7 % (1.0-6.0); RBC 4.24 10^6/uL (3.5-6.1); RED CELL DISTRIBUTION WIDTH 12.7 % (11.5-14.5); WHITE BLOOD COUNT 6.8 10^3/uL (4.5-11.0)
[2018-07-23 07:39] LABS: ALB/GLOB RATIO 1.3 (1.1-1.8); ALBUMIN 3.7 g/dL (3.0-4.8); ALT/SGPT 20 U/L (7-56); AST/SGOT 32 U/L (14-36); BLOOD UREA NITROGEN 17 mg/dL (7-21); CALCIUM 9.2 mg/dL (8.4-10.5); GFR NON-AFRICAN AMERICAN > 60
[2018-07-23] MEDS: Insulin Lispro 1 UNITS/0.01 ML SC SCH ×3 (08:33→17:43)
[2018-07-23] MEDS: Insulin Lispro (humaLOG) LOW Coverage SC SCH ×4 (09:54→23:01)
[2018-07-23] MEDS: Aspirin 325 mg EC Tablets PO SCH (10:04)
[2018-07-23] MEDS: Levothyroxine 112 MCG TAB PO SCH (10:05)
[2018-07-23] MEDS: Enoxaparin 60 mg Syringe SC SCH ×3 (10:08→22:33)
--- NOTE | 2018-07-23 13:34 | PN ---
DATE: 07/23/2018 REASON FOR DICTATION: Covering for Dr. Kenji Mendes. REASON FOR CONSULTATION: Chest pain, history of coronary disease, multiple stent in the past, cardiac evaluation. SUBJECTIVE: The patient denies any chest pain, shortness of breath, or any palpitation. distress. PHYSICAL EXAMINATION: VITAL SIGNS: Temperature afebrile, heart rate 70, and blood pressure 108/64. HEENT: PERRLA. Extraocular muscles intact. NECK: Supple. No carotid bruit. No thyromegaly. CHEST: Clear to auscultation. HEART: S1 and S2 regular. ABDOMEN: Soft. EXTREMITIES: Clubbing and cyanosis negative. LABORATORY DATA: Blood workup; WBC 6.8, hemoglobin 12.8, hematocrit 37.5, and platelet count 178. Chemistry shows sodium 132, potassium 4.0, chloride 100, carbon dioxide 24, anion gap of 13, BUN 73, troponin creatinine 0.8. Troponin 0.01 x4; negative, last troponin 0.11. IMPRESSION: A 73-year-old female with past medical history significant for multiple stent, uncontrolled diabetes. Recent echo showed ejection fraction on 06/20/2017 is 45%. Last stent, the patient had a stent was done in the proximal distal left anterior descending troponin positive. Note the patient's pain is revealed. RECOMMENDATION: We will treat her unstable angina. We will continue Lovenox 1 dose, keep n.p.o. after midnight for possible stress versus cardiac catheterization. Further recommendation made as per Dr. Mendes tomorrow. We will keep n.p.o. for possible cath versus stress test. We will transfer care tomorrow to Dr. Mendes. We will hold Lovenox after 2 days dose. If the patient have no significant, maybe consider stress test versus cath because the left anterior descending distal may totally occluded. Thank you Dr. Mendes for providing us the opportunity in taking care of the patient, Salena Galaviz. Kimberly Maya MD
--- NOTE | 2018-07-23 20:20 | PN ---
DATE: 07/23/2018 SUBJECTIVE: The patient does not complain of any chest pain or shortness of breath. No headache. PHYSICAL EXAMINATION VITAL SIGNS: Temperature is 97.9, pulse of 59, blood pressure is 108/64, respirations 20. HEENT: PERRLA. Extraocular muscles intact. NECK: Supple. No carotid bruit. No thyromegaly. CHEST: Clear to auscultation. HEART: S1 and S2 regular. ABDOMEN: Soft. EXTREMITIES: Clubbing and cyanosis negative. LABORATORY DATA: White count of 6.8, hemoglobin 12.8, creatinine 0.8. ASSESSMENT AND PLAN: 1. Chest pain. 2. Diabetes type 2 uncontrolled. 3. Hypertension. 4. Dyslipidemia. 5. Diabetic neuropathy. 6. Hypothyroidism. 7. Pulmonary hypertension. PLAN: The patient was being treated for unstable angina. She is being followed by Cardiology, I did review their note. Patient is on Losartan for hypertension. She is on Cymbalta. She is going to continue with aspirin daily. The patient is on Levemir for diabetes and Neurontin for her neuropathy. She is on Requip for her neuropathy as well. She is Xanax for anxiety and depression. She is also on Zoloft. Ayan Parham MD
[2018-07-23] MEDS ORDERED: Magnesium Sulfate 2 gm/50 ml 2 GM/50 ML BAG IVPB ONE (21:09)
[2018-07-23] MEDS ORDERED: Insulin Detemir 100 units/ml Vial (Levemir) SC ONE (22:55)
[2018-07-23] MEDS: Insulin Detemir 100 units/ml Vial (Levemir) SC SCH (23:01)
[2018-07-24] MEDS: Pantoprazole 40 mg EC Tab PO SCH (06:09)
[2018-07-24] MEDS: Aspirin 325 mg EC Tablets PO SCH (07:16)
--- NOTE | 2018-07-24 07:57 | CP.PCM.PN ---
Subjective - Date & Time of Evaluation Date of Evaluation: 07/24/18 Time of Evaluation: 07:00 - Subjective Subjective: Jhonathan Guo D.O. PGY-3, Internal Medicine Resident, Endocrinology Progress Note 73 year old female with a PMH of CAD s/p CABG and 17 stents, hypothyroidism and DM who presented to the emergency department complaining of intermittent chest pain for the past week. Endocrinology consultation was requested for management of her DM and hypothyroidism. Patient was seen and examined at bedside. Patient has no acute complaints at this time. NPO for cath this morning. Objective - Vital Signs/Intake and Output Vital Signs (last 24 hours): Temp Pulse Resp BP Pulse Ox 97.9 F 68 20 145/74 100 07/24/18 06:00 07/24/18 07:15 07/24/18 06:00 07/24/18 07:15 07/24/18 06:00 Intake and Output: 07/24/18 07/24/18 06:59 18:59 Intake Total 120 Balance 120 - Medications Medications: Current Medications Alprazolam (Xanax) 0.25 mg PO BID PRN; Protocol PRN Reason: Anxiety Stop: 07/28/18 19:47 Aspirin (Ecotrin) 325 mg PO DAILY [facility] Last Admin: 07/24/18 07:16 Dose: 325 mg Clopidogrel Bisulfate (Plavix) 75 mg PO DAILY [facility] Last Admin: 07/24/18 07:16 Dose: 75 mg Dextrose (Dextrose 50% Inj) 0 ml IV STAT PRN; Protocol PRN Reason: Hypoglycemia Protocol Duloxetine HCl (Cymbalta) 30 mg PO PRN RAY Gabapentin (Neurontin) 300 mg PO TID [facility]; Protocol Last Admin: 07/23/18 18:13 Dose: 300 mg Dextrose (Dextrose 5% In Water 1000 Ml) 1,000 mls @ 0 mls/hr IV .Q0M PRN; Protocol PRN Reason: Hypoglycemia Protocol Insulin Detemir (Levemir) 50 unit SC HS [facility] Last Admin: 07/23/18 23:01 Dose: Not Given Insulin Human Lispro (Humalog Low) 0 units SC ACHS [facility]; Protocol Last Admin: 07/23/18 23:01 Dose: Not Given Insulin Human Lispro (Humalog) 14 units SC AC [facility] Last Admin: 07/23/18 17:43 Dose: 14 units Levothyroxine Sodium (Synthroid) 112 mcg PO DAILY [facility] Last Admin: 07/23/18 10:05 Dose: 112 mcg Losartan Potassium (Cozaar) 50 mg PO DAILY [facility] Last Admin: 07/23/18 10:04 Dose: 50 mg Metoprolol Tartrate (Lopressor) 25 mg PO BID [facility] Last Admin: 07/24/18 07:15 Dose: 25 mg Pantoprazole Sodium (Protonix Ec Tab) 40 mg PO 0630 [facility] Last Admin: 07/24/18 06:09 Dose: Not Given Phenazopyridine HCl (Pyridium) 100 mg PO Q12 [facility] Stop: 07/24/18 22:00 Last Admin: 07/23/18 21:42 Dose: 100 mg Primidone (Mysoline) 50 mg PO [facility] Last Admin: 07/23/18 21:42 Dose: 50 mg Ropinirole HCl (Requip) 1 mg PO [facility] Last Admin: 07/23/18 21:42 Dose: 1 mg Sertraline HCl (Zoloft) 100 mg PO [facility] Last Admin: 07/23/18 21:42 Dose: 100 mg - Labs Labs: 07/23/18 05:00 07/23/18 05:00 PT 12.8 SECONDS (9.4-12.5) H 07/21/18 16:05 INR 1.15 07/21/18 16:05 APTT 31.1 Seconds (26.9-38.3) 07/21/18 16:05 - Constitutional Appears: Non-toxic, No Acute Distress - Head Exam Head Exam: ATRAUMATIC, NORMOCEPHALIC - Eye Exam Eye Exam: EOMI. absent: Scleral icterus - ENT Exam ENT Exam: Mucous Membranes Moist - Respiratory Exam Respiratory Exam: absent: Rales, Rhonchi, Wheezes - Cardiovascular Exam Cardiovascular Exam: +S1, +S2 - GI/Abdominal Exam GI & Abdominal Exam: Soft - Extremities Exam Extremities Exam: absent: Calf Tenderness, Pedal Edema - Neurological Exam Neurological Exam: Alert, Awake, Oriented x3 - Psychiatric Exam Psychiatric exam: Normal Affect, Normal Mood - Skin Skin Exam: Dry, Warm Assessment and Plan - Assessment and Plan (Free Text) Assessment: 73 year old female with a PMH of CAD s/p CABG and 17 stents, hypothyroidism and DM who presented to the emergency department complaining of intermittent chest pain for the past week. Endocrinology consultation was requested for management of her DM and hypothyroidism. Plan: 1. Uncontrolled DM HgbA1c is 9.9, elevated from 09/22/2017 of 7.3% Discussed importance of medical compliance Follow blood glucoses Received only 20 of levemir SC last night because she was NPO for procedure Continue levemir 50 units SC HS tonight Continue with lispro 14 units SC AC special education paraeducator consulted Continue carb consistent diet Will follow 2. Hypothyroidism Well controlled on current dose, TSH and T4 within limits Continue levothyroxine 112mcg po QD Patient was seen and examined and case to be discussed with attending physician.
--- NOTE | 2018-07-24 08:25 | HP ---
DATE OF EXAM: 07/21/2018 HISTORY OF PRESENT ILLNESS: The patient is 73 years old , known to me from previous admission, came to the emergency room because of intermittent chest pressure and discomfort, intermittently going on for almost a week, associated with shortness of breath and feeling weak. Denies any fever or chills. No cough or congestion. No dizziness. The patient did see her client professional as outpatient, and she was told she is fine, but she continued to have intermittent chest pain and shortness of breath, so she came to the emergency room for further evaluation. The patient claims that she has been compliant with her medications including aspirin and Plavix. PAST MEDICAL HISTORY: Significant for; 1. Hypertension. 2. COPD. 3. Coronary artery disease status post angioplasty and had proximal LAD angioplasty done. 4. Insulin-dependent diabetes. 5. History of breast CA. 6. Peptic ulcer disease. PAST SURGICAL HISTORY: Significant for; 1. Open heart surgery. 2. Status post Lap-Band surgery. FAMILY HISTORY: Not relevant. SOCIAL HISTORY: She used to be a heavy smoker. No history of alcohol use. ALLERGIES: SHE IS ALLERGIC TO CLARITHROMYCIN, CODEINE, IODINE, AND SHELLFISH. MEDICATIONS: She is on losartan 50 mg daily, metformin 1000 mg twice a day, Humalog 20 units before each meal, she is on 80 mg at bedtime, Crestor 20 mg daily, gabapentin 400 mg q.i.d., Xanax 0.25 mg t.i.d. p.r.n., levothyroxine 112 mcg daily, Mysoline 50 mg at bedtime, omeprazole 50 mg daily, metoprolol 25 mg twice a day, Zoloft 100 mg at bedtime, Ranexa 500 mg three times a day, Cymbalta 30 mg daily, Plavix 75 mg daily, aspirin 325 mg daily, and Requip 1 mg at bedtime. REVIEW OF SYSTEMS: Significant for intermittent chest discomfort and shortness of breath. PHYSICAL EXAMINATION: GENERAL: She is alert, awake, oriented and able to communicate. VITAL SIGNS: She is afebrile, pulse 69, respirations 18, and blood pressure 163/75. LUNGS: Bilateral fair airflow. No rhonchi or crackle. HEART: S1 and S2 audible. ABDOMEN: Soft and nontender. No rebound. No guarding. NEUROLOGIC: The patient is awake, alert, oriented, able to communicate. LABORATORY DATA: WBC 9.1, hemoglobin 13, hematocrit 37, and platelets 174,000. PT 12.8 and INR 1.15. Chemistry; sodium 131, potassium 5.1, chloride 99, CO2 of 21, BUN 16, creatinine 0.9, blood sugar was 570. LFTs are within normal limits. ASSESSMENT: 1. Chest pain, rule out underlying coronary ischemia. 2. Hypertension. 3. Uncontrolled diabetes. 4. Coronary artery disease, status post open heart surgery. 5. History of peptic ulcer disease. 6. History of gastric bypass. 7. Diabetic neuropathy. PLAN: We will resume her medications, follow up troponin. Monitor blood sugar closely. Cardiology consult by Dr. Mendes, and endocrinology consult with . has been requested. Eugenio Carl MD
[2018-07-24] MEDS ORDERED: Lidocaine PF 2% (5 ml) Inj (For Cardiac Arrhy) ONE (08:53)
[2018-07-24] MEDS ORDERED: Iodixanol 320 MG/ML 200 ML BOTTLE IV ONE (08:53)
[2018-07-24] MEDS ORDERED: Iodixanol 320 MG/ML 100 ML BOTTLE IV ONE (08:53)
[2018-07-24] MEDS ORDERED: Iohexol 350mgl/ml 50 ML ONE (08:53)
[2018-07-24] MEDS ORDERED: DiphenhydrAMINE 50 mg/ml Inj ONE (08:56)
[2018-07-24] MEDS ORDERED: Famotidine 20mg/50ml 20 MG/50 ML BAG IVPB ONE (08:56)
[2018-07-24] MEDS ORDERED: Midazolam 2 MG/2 ML VIAL ONE ×2 (09:08→09:10)
[2018-07-24] MEDS ORDERED: Sodium Chloride 0.9% 1,000 ML IV SCH (09:45)
--- NOTE | 2018-07-24 11:10 | CARDCATH ---
PROCEDURE DATE: 07/24/2018 HISTORY: The patient is a 73-year-old woman with history of coronary artery bypass surgery, TMR, who presents with recurrence of angina. Because of this, a cardiac catheterization was recommended. PROCEDURES: Left heart catheterization with coronary arteriography, left ventriculogram, supra-aortic valvular injection as well as percutaneous transluminal coronary angioplasty and stent of the circumflex artery. Her bypass grafts were noted to be occluded in its previous study. The right femoral artery was cannulated with a 6-Japanese sheath. There were no complications. I performed moderate sedation which included the presence of an independent trained observer that assisted in monitoring the patient's level of consciousness and physiologic status. After administration of Versed and fentanyl, my intra-service time was 30 minutes. Findings on catheterization revealed a left ventricle that was globally hypokinetic with an estimated ejection fraction of 40% to 45%. Supra-aortic valvular injection revealed no aortic insufficiency. Her coronary anatomy revealed a right dominant circulation. The RCA revealed multiple patent stents with diffuse atherosclerosis throughout its course. The posterior lateral branch revealed a 60% to 70% stenosis in a small and diffusely diseased vessel. The left main artery was unremarkable. The LAD revealed a 70% stenosis in its ostium as well as an occluded vessel in the midportion which represented in-stent restenosis. The occlusion is chronic. The circumflex artery revealed multiple patent stents as well as a new 80% stenoses in the proximal portion. The patient was started on intravenous Angiomax on the fluoroscopic guide, the guiding catheter was placed in the ostium of the left main artery. An 0.014 ATW wire was used to cross the critical lesion. This was followed by implantation of a 2.5 x 8 mm drug-eluting stent which was placed at 17 ounces of pressure. After balloon deflation removal, repeat coronary arteriography revealed an excellent result with no residual stenosis and VERONICA III flow. Angio-Seal was used to close the femoral artery site. The patient tolerated the procedure well. In summary, the procedure was successful PTCA and stent of a new 80% stenosis of the proximal circumflex artery with a drug-eluting stent. Cardiac catheterization revealed an LV with an EF of 40% to 45% which is unchanged. A chronically occluded LAD. Patent stents in the RCA and circumflex artery. No aortic insufficiency. A new 80% stenoses which was manipulated. Given these findings, the patient will need to remain on aspirin indefinitely and Plavix for least a year and continue a cardiac risk reduction program. eKnji Mendes MD
[2018-07-24] MEDS: Insulin Lispro (humaLOG) LOW Coverage SC SCH ×3 (11:59→22:58)
[2018-07-24] MEDS: Insulin Lispro 1 UNITS/0.01 ML SC SCH ×2 (12:05→17:28)
[2018-07-24] MEDS: Levothyroxine 112 MCG TAB PO SCH (15:23)
--- NOTE | 2018-07-24 16:07 | PN ---
DATE: 07/24/2018 SUBJECTIVE: The patient is 73 years old, who came in with intermittent chest pain going on for the last 2 weeks. She went to see her rocket engine mechanic, who was told to continue her usual medications. Her chest pain was not going away, so she came to emergency room for further evaluation. The patient was evaluated by , underwent cardiac cath, has circumflex angioplasty done. PHYSICAL EXAMINATION GENERAL: She is awake, alert, oriented, and able to communicate. VITAL SIGNS: She is afebrile, pulse 57, respirations 19, and blood pressure 137/68. LUNGS: Bilateral fair airflow. No rhonchi or crackles. HEART: S1 and S2 audible. ABDOMEN: Soft and nontender. No rebound. No guarding. NEUROLOGIC: The patient is awake and alert, able to communicate. Right groin has Angio-Seal. Distal pulses are palpable and both feet are warm. LABORATORY DATA: WBC 6.8, hemoglobin 12, hematocrit 37, and platelets 178. Chemistry; sodium 132, potassium 4.1, chloride 100, CO2 of 24, BUN 17, and creatinine 0.8, blood sugar of 280. Troponin 0.57. ASSESSMENT 1. Status post cardiac catheterization, status post circumflex angioplasty. 2. History of coronary artery disease, status post open heart surgery, status post transmyocardial revascularization, , left anterior descending total occlusion. 3. Poorly-controlled diabetes. 4. Hypertension. 5. Hyperlipidemia. PLAN: We will monitor the patient and we will monitor her blood sugar. Continue her on losartan. She is on Cymbalta. We will give her aspirin 81 mg daily. She is on insulin. We will continue her on beta jasmina. We will follow up her CBC and CMP. If her BUN and creatinine are stable, she will be discharged. Eugenio Carl MD
[2018-07-24] MEDS: Insulin Detemir 100 units/ml Vial (Levemir) SC SCH (22:57)
--- NOTE | 2018-07-25 00:37 | PN ---
DATE: 07/24/2018 ENDOCRINOLOGY FOLLOWUP NOTE LOCATION: Room 274. SUBJECTIVE: This is a 73-year-old female with recent uncontrolled type 2 insulin-requiring diabetes, now being followed closely for metabolic management. She presented here with precordial chest pain and significant cardiac vasculopathy and is actually scheduled for cardiac cath today as noted. Her glycemic levels are fluctuating, but improved, and the latest glucose levels were actually 280 mg per dL. Her chemistry showed a BUN of 17, sodium 132, potassium 4.1, chloride 100, CO2 of 24, glucose 300, and creatinine 0.8. Her thyroid, TSH is 4.04 with a free T4 of 0.86. ASSESSMENT: This is a 73-year-old female with recent uncontrolled type 2 insulin-requiring diabetes, now being followed closely for metabolic management. Her glycemic levels are fluctuating with the modified basal insulin as given overnight as noted. She is scheduled to undergo cardiac catheterization today to assess further underlying myocardial ischemia and coronary occlusion with the significant previous multiple coronary stent placements and prior coronary artery bypass graft surgery. PLAN OF MANAGEMENT: We will resume her basal and bolus insulin regimen post cardiac cath procedure today as ordered. We will continue her Levemir given as 50 units subcu at bedtime daily as ordered. We will continue also the Humalog given as 14 units t.i.d. before meals as ordered. We will obtain serial chemistries and supplement accordingly needed. We will follow. Viry Arias MD
[2018-07-25] MEDS: Pantoprazole 40 mg EC Tab PO SCH (05:32)
[2018-07-25 07:44] LABS: BASO # 0.01 K/mm3 (0.0-2.0); BASO % 0.1 % (0.0-3.0); HEMOGLOBIN 12.1 g/dL (12.0-16.0); LYMPH # 1.4 (1.2-3.4); LYMPH % 9.3 % (22.0-35.0); MEAN CELL VOLUME 87.9 fl (80.0-105.0); MEAN CORPUSCULAR HEMOGLOBIN 30.5 pg (25.0-35.0); MEAN CORPUSCULAR HGB CONC 34.7 g/dl (31.0-37.0); MEAN PLATELET VOLUME 9.6 fl (7.0-11.0); MONO # 0.9 (0.1-0.6); MONO % 6.5 % (1.0-6.0); RBC 3.97 10^6/uL (3.5-6.1); RED CELL DISTRIBUTION WIDTH 12.7 % (11.5-14.5); WHITE BLOOD COUNT 14.5 10^3/uL (4.5-11.0)
[2018-07-25 08:07] LABS: ALB/GLOB RATIO 1.3 (1.1-1.8); ALBUMIN 3.8 g/dL (3.0-4.8); ALT/SGPT 18 U/L (7-56); AST/SGOT 42 U/L (14-36); BLOOD UREA NITROGEN 21 mg/dL (7-21); CALCIUM 9.5 mg/dL (8.4-10.5); GFR NON-AFRICAN AMERICAN > 60
[2018-07-25] MEDS: Insulin Lispro (humaLOG) LOW Coverage SC SCH ×4 (09:20→21:13)
[2018-07-25] MEDS: Insulin Lispro 1 UNITS/0.01 ML SC SCH ×3 (10:12→16:35)
[2018-07-25] MEDS: Levothyroxine 112 MCG TAB PO SCH (10:13)
--- NOTE | 2018-07-25 10:26 | CP.PCM.PN ---
Subjective - Date & Time of Evaluation Date of Evaluation: 07/25/18 Time of Evaluation: 06:45 - Subjective Subjective: Jhonathan Guo D.O. PGY-3, Internal Medicine Resident, Endocrinology Progress Note 73 year old female with a PMH of CAD s/p CABG and 17 stents, hypothyroidism and DM who presented to the emergency department complaining of intermittent chest pain for the past week. Endocrinology consultation was requested for management of her DM and hypothyroidism. Patient was seen and examined at bedside. Had cath yesterday with stent placement. States feeling much better. No acute complaints. Objective - Vital Signs/Intake and Output Vital Signs (last 24 hours): Temp Pulse Resp BP Pulse Ox 98 F 75 20 125/65 96 07/25/18 06:00 07/25/18 10:13 07/25/18 06:00 07/25/18 10:13 07/25/18 06:00 Intake and Output: 07/25/18 07/25/18 06:59 18:59 Intake Total 120 Balance 120 - Medications Medications: Current Medications Alprazolam (Xanax) 0.25 mg PO BID PRN; Protocol PRN Reason: Anxiety Stop: 07/28/18 19:47 Aspirin (Ecotrin) 81 mg PO DAILY [facility] Last Admin: 07/25/18 10:13 Dose: 81 mg Atorvastatin Calcium (Lipitor) 40 mg PO DIN [facility] Last Admin: 07/24/18 17:29 Dose: 40 mg Clopidogrel Bisulfate (Plavix) 75 mg PO DAILY [facility] Last Admin: 07/25/18 10:13 Dose: 75 mg Dextrose (Dextrose 50% Inj) 0 ml IV STAT PRN; Protocol PRN Reason: Hypoglycemia Protocol Duloxetine HCl (Cymbalta) 30 mg PO PRN [facility] Gabapentin (Neurontin) 300 mg PO TID [facility]; Protocol Last Admin: 07/25/18 10:16 Dose: 300 mg Dextrose (Dextrose 5% In Water 1000 Ml) 1,000 mls @ 0 mls/hr IV .Q0M PRN; Protocol PRN Reason: Hypoglycemia Protocol Insulin Detemir (Levemir) 50 unit SC HS [facility] Last Admin: 07/24/18 22:57 Dose: 50 units Insulin Human Lispro (Humalog Low) 0 units SC ACHS [facility]; Protocol Last Admin: 07/25/18 09:20 Dose: Not Given Insulin Human Lispro (Humalog) 14 units SC AC [facility] Last Admin: 07/25/18 10:12 Dose: 14 units Levothyroxine Sodium (Synthroid) 112 mcg PO DAILY [facility] Last Admin: 07/25/18 10:13 Dose: 112 mcg Losartan Potassium (Cozaar) 50 mg PO DAILY [facility] Last Admin: 07/25/18 10:13 Dose: 50 mg Metoprolol Tartrate (Lopressor) 25 mg PO BID [facility] Last Admin: 07/25/18 10:12 Dose: 25 mg Pantoprazole Sodium (Protonix Ec Tab) 40 mg PO 0630 [facility] Last Admin: 07/25/18 05:32 Dose: 40 mg Primidone (Mysoline) 50 mg PO [facility] Last Admin: 07/24/18 22:57 Dose: 50 mg Ropinirole HCl (Requip) 1 mg PO [facility] Last Admin: 07/24/18 22:56 Dose: 1 mg Sertraline HCl (Zoloft) 100 mg PO [facility] Last Admin: 07/24/18 22:56 Dose: 100 mg - Labs Labs: 07/25/18 07:30 07/25/18 07:30 PT 12.8 SECONDS (9.4-12.5) H 07/21/18 16:05 INR 1.15 07/21/18 16:05 APTT 31.1 Seconds (26.9-38.3) 07/21/18 16:05 - Constitutional Appears: Non-toxic, No Acute Distress - Head Exam Head Exam: ATRAUMATIC, NORMOCEPHALIC - Eye Exam Eye Exam: EOMI. absent: Scleral icterus - ENT Exam ENT Exam: Mucous Membranes Moist - Respiratory Exam Respiratory Exam: absent: Rales, Rhonchi, Wheezes - Cardiovascular Exam Cardiovascular Exam: +S1, +S2 - GI/Abdominal Exam GI & Abdominal Exam: Soft - Extremities Exam Extremities Exam: absent: Calf Tenderness, Pedal Edema - Neurological Exam Neurological Exam: Alert, Awake, Oriented x4 - Psychiatric Exam Psychiatric exam: Normal Affect, Normal Mood - Skin Skin Exam: Dry, Warm Assessment and Plan - Assessment and Plan (Free Text) Assessment: 73 year old female with a PMH of CAD s/p CABG and 17 stents, hypothyroidism and DM who presented to the emergency department complaining of intermittent chest pain for the past week. Endocrinology consultation was requested for management of her DM and hypothyroidism. Plan: 1. Uncontrolled DM Sugars currently erratic given that she was NPO yesterday and received a smaller dose of basal insulin Will continue levemir 50 units SC HS Continue with lispro 14 units SC AC cloth colorer consulted Continue carb consistent diet 2. Hypothyroidism Continue levothyroxine 112mcg po QD Patient was seen and examined and case to be discussed with attending physician.
--- NOTE | 2018-07-25 11:38 | CARD ---
APPROVED REPORT Date of service: 07/25/2018 EKG Measurement Heart [id number] <Conclusion> Sinus bradycardia Left anterior fascicular block Possible Anterolateral infarct, age undetermined Abnormal ECG
--- NOTE | 2018-07-25 12:14 | PN ---
DATE: 07/25/2018 SUBJECTIVE: The patient is chest pain free. However, she is complaining of weakness and difficulty walking. The patient normally uses a walker at home. PHYSICAL EXAMINATION: VITAL SIGNS: Stable. NECK: Negative JVD. LUNGS: Without rales. HEART: S1, S2. EXTREMITIES: Without edema. The right groin site is stable. LABORATORY DATA: Glucose is 300. The hemoglobin is 12.1. IMPRESSION: 1. Stable post PTCA and stent of a proximal circumflex artery. 2. Ischemic dilated cardiomyopathy. 3. Multivessel coronary artery disease. 4. Diabetes mellitus. 5. Hypercholesterolemia. 6. Weakness. Given these findings, we will order physical therapy. TCU evaluation would be appropriate. Kenji Mendes MD
--- NOTE | 2018-07-25 17:58 | PN ---
DATE: 07/25/2018 ENDOCRINOLOGY FOLLOWUP NOTE LOCATION: In room 274. SUBJECTIVE: This is a 73-year-old female with recent uncontrolled type 2 insulin-requiring diabetes, who underwent a cardiac cath procedure yesterday and is now being followed closely for metabolic management. Her glycemic levels are fluctuating as noted overnight and have ranged from 290 to 388 mg per dL. Her chemistry showed a BUN of 21, sodium 132, potassium 4.5, chloride 101, CO2 of 24, glucose 300, and creatinine 0.8. PLAN OF MANAGEMENT: So at this time, we will modify once again her basal and bolus insulin regimen and increase the Levemir to 60 units subcu at bedtime daily despite tonight. We will continue the low dose correction scale using Humalog insulin as ordered. We will also continue the prandial insulin given as Humalog at 14 units subcu t.i.d. before meals as ordered especially with the variability of the oral intake. We will obtain serial chemistries and supplement accordingly as needed. We will follow with you. Viry Arias MD
--- NOTE | 2018-07-25 20:37 | DS ---
HISTORY OF PRESENT ILLNESS: The patient is 73 years old, seen and examined, came in with chest pain, underwent cardiac cath yesterday, had circumflex angioplasty. States she has no more chest pain. Underlying generalized weakness. Complaint of weakness and generalized difficulty walking. Was evaluated by vinyl installer and recommended short-term physical therapy. PHYSICAL EXAMINATION GENERAL: Today, she is awake, alert, oriented and able to communicate. VITAL SIGNS: She is afebrile. Pulse 66, respiration 20 and blood pressure 125/65. LUNGS: Bilateral fair airflow. No rhonchi or crackle. HEART: S1 and S2, audible. ABDOMEN: Soft and nontender. No rebound. No guarding. NEUROLOGIC: She is awake, alert and able to communicate. Has generalized weakness and difficulty walking. LABORATORY DATA: WBC 14.5, hemoglobin 12, hematocrit 34.9, and platelet 185. Chemistry; sodium 132, potassium 4.5, chloride 101, CO2 of 24, BUN 21, creatinine 0.8, and blood sugar 288. ASSESSMENT: 1. Chest pain, secondary to underlying coronary ischemia, status post circumflex angioplasty. 2. History of ischemic dilated cardiomyopathy. 3. History of multi-vessel disease, status post magnet resonance tomography procedure. 4. Insulin dependant diabetes. 5. Hyperlipidemia. PLAN: The patient will request for TCU evaluation. Continue current medication. If patient accepted the patient will be transferred to TCU. Eugenio Carl MD
[2018-07-25] MEDS ORDERED: Insulin Detemir 100 units/ml Vial (Levemir) SC SCH (22:00)
[2018-07-26] MEDS: Pantoprazole 40 mg EC Tab PO SCH (05:34)
[2018-07-26 06:00] VITALS: O2SAT 97
[2018-07-26] MEDS: Insulin Lispro 1 UNITS/0.01 ML SC SCH ×3 (08:01→17:45)
[2018-07-26] MEDS: Insulin Lispro (humaLOG) LOW Coverage SC SCH ×3 (08:01→17:39)
[2018-07-26] MEDS: Levothyroxine 112 MCG TAB PO SCH (09:01)
--- NOTE | 2018-07-26 11:00 | CP.PCM.PN ---
Subjective - Date & Time of Evaluation Date of Evaluation: 07/26/18 Time of Evaluation: 09:45 - Subjective Subjective: Jhonathan Guo D.O. PGY-3, Internal Medicine Resident, Endocrinology Progress Note 73 year old female with a PMH of CAD s/p CABG and 17 stents, hypothyroidism and DM who presented to the emergency department complaining of intermittent chest pain for the past week. Endocrinology consultation was requested for management of her DM and hypothyroidism. Patient was seen and examined at bedside. At this time has no complaints. Feeling overall better. Ambulating with cane. Objective - Vital Signs/Intake and Output Vital Signs (last 24 hours): Temp Pulse Resp BP Pulse Ox 98 F 55 L 20 146/72 97 07/26/18 05:59 07/26/18 09:58 07/26/18 05:59 07/26/18 09:03 07/26/18 05:59 Intake and Output: 07/26/18 07/26/18 06:59 18:59 Intake Total 120 Balance 120 - Medications Medications: Current Medications Alprazolam (Xanax) 0.25 mg PO BID PRN; Protocol PRN Reason: Anxiety Stop: 07/28/18 19:47 Aspirin (Ecotrin) 81 mg PO DAILY [facility] Last Admin: 07/26/18 09:02 Dose: 81 mg Atorvastatin Calcium (Lipitor) 40 mg PO DIN [facility] Last Admin: 07/25/18 17:42 Dose: 40 mg Clopidogrel Bisulfate (Plavix) 75 mg PO DAILY [facility] Last Admin: 07/26/18 09:01 Dose: 75 mg Dextrose (Dextrose 50% Inj) 0 ml IV STAT PRN; Protocol PRN Reason: Hypoglycemia Protocol Duloxetine HCl (Cymbalta) 30 mg PO PRN [facility] Gabapentin (Neurontin) 300 mg PO TID [facility]; Protocol Last Admin: 07/26/18 09:02 Dose: 300 mg Dextrose (Dextrose 5% In Water 1000 Ml) 1,000 mls @ 0 mls/hr IV .Q0M PRN; Protocol PRN Reason: Hypoglycemia Protocol Insulin Detemir (Levemir) 60 unit SC HS [facility] Last Admin: 07/25/18 21:13 Dose: 60 units Insulin Human Lispro (Humalog Low) 0 units SC ACHS [facility]; Protocol Last Admin: 07/26/18 08:01 Dose: Not Given Insulin Human Lispro (Humalog) 14 units SC AC [facility] Last Admin: 07/26/18 08:01 Dose: Not Given Levothyroxine Sodium (Synthroid) 112 mcg PO DAILY [facility] Last Admin: 07/26/18 09:01 Dose: 112 mcg Losartan Potassium (Cozaar) 50 mg PO DAILY [facility] Last Admin: 07/26/18 09:02 Dose: 50 mg Metoprolol Tartrate (Lopressor) 25 mg PO BID [facility] Last Admin: 07/26/18 09:03 Dose: Not Given Pantoprazole Sodium (Protonix Ec Tab) 40 mg PO 0630 [facility] Last Admin: 07/26/18 05:34 Dose: 40 mg Primidone (Mysoline) 50 mg PO HS [facility] Last Admin: 07/25/18 21:14 Dose: 50 mg Ropinirole HCl (Requip) 1 mg PO [facility] Last Admin: 07/25/18 21:14 Dose: 1 mg Sertraline HCl (Zoloft) 100 mg PO [facility] Last Admin: 07/25/18 21:14 Dose: 100 mg - Labs Labs: 07/25/18 07:30 07/25/18 07:30 PT 12.8 SECONDS (9.4-12.5) H 07/21/18 16:05 INR 1.15 07/21/18 16:05 APTT 31.1 Seconds (26.9-38.3) 07/21/18 16:05 - Constitutional Appears: Non-toxic, No Acute Distress - Head Exam Head Exam: ATRAUMATIC, NORMOCEPHALIC - Eye Exam Eye Exam: EOMI. absent: Scleral icterus - ENT Exam ENT Exam: Mucous Membranes Moist - Respiratory Exam Respiratory Exam: absent: Rales, Rhonchi, Wheezes - Cardiovascular Exam Cardiovascular Exam: +S1, +S2 - GI/Abdominal Exam GI & Abdominal Exam: Soft - Extremities Exam Extremities Exam: absent: Calf Tenderness, Pedal Edema - Neurological Exam Neurological Exam: Alert, Awake, Oriented x4 - Psychiatric Exam Psychiatric exam: Normal Affect, Normal Mood - Skin Skin Exam: Dry, Warm Assessment and Plan - Assessment and Plan (Free Text) Assessment: 73 year old female with a PMH of CAD s/p CABG and 17 stents, hypothyroidism and DM who presented to the emergency department complaining of intermittent chest pain for the past week. Endocrinology consultation was requested for management of her DM and hypothyroidism. Plan: 1. Uncontrolled DM Sugars continue to be elevated throughout the day Will increase levemir from 50 to 60 units SC HS Continue with lispro 14 units SC AC Continue carb consistent diet Will follow 2. Hypothyroidism Continue levothyroxine 112mcg po QD Patient was seen and examined and case to be discussed with attending physician.
[2018-07-26 11:45] VITALS: RESP 18
[2018-07-26 17:25] VITALS: BP 145/77; TEMP 98
--- NOTE | 2018-07-26 19:02 | PN ---
DATE: 07/26/2018 CARDIOLOGY FOLLOWUP SUBJECTIVE: The patient is chest pain-free. PHYSICAL EXAMINATION: VITAL SIGNS: Blood pressure varies from 146 to 167 systolic. Heart rate is in the 50s. NECK: Negative JVD. LUNGS: Without rales. HEART: S1, S2. EXTREMITIES: Without edema. LABORATORY DATA: Glucose is 190. IMPRESSION: 1. Status post percutaneous transluminal coronary angioplasty and stent. 2. Multivessel coronary artery disease. 3. History of coronary bypass surgery. 4. Anemia. 5. Diabetes mellitus. PLAN: The patient is stable post angioplasty. The patient is waiting for transfer to a subacute rehab. Kenji Mendes MD
--- NOTE | 2018-07-26 19:24 | PN ---
DATE: 07/26/2018 ENDOCRINOLOGY FOLLOWUP NOTE LOCATION: Room 275. SUBJECTIVE: This is a 73-year-old female with recent uncontrolled type 2 insulin-requiring diabetes, now being followed closely for metabolic management. Her glycemic levels are fluctuating but improved overnight with glucose values ranging from 105-190 and 148 mg/dL. LABORATORY DATA: Her chemistry showed a BUN of 21, sodium 132, potassium 4.5, chloride 101, CO2 of 24, glucose 300 and creatinine 0.8. ASSESSMENT AND PLAN: So at this time, we will continue the same modified basal and bolus insulin regimen to allow for dose equilibration and keep her on the Levemir given as 60 units subcutaneus at bedtime daily as ordered. We will continue the Humalog given as 14 units subcutaneus three times daily before meals as ordered. We will obtain serial chemistries and supplement accordingly. We will follow. Viry Arias MD
[2018-07-26 21:09] VITALS: PULSE 60
--- NOTE | 2018-07-26 22:44 | DS ---
HISTORY OF PRESENT ILLNESS: The patient is 73 years old, who came in with chest pain, pressure tightness, has been increasingly getting worsened. She was increasingly short of breath, that was going on for almost a week, so she went to her assistant county attorney, who told her it is going to be alright. However, her chest pain did not improve and she came to emergency room for further evaluation. She has positive troponin, so the patient was taken to [facility] [place] [facility] the following day and underwent cardiac cath. She had proximal circumflex angioplasty done. PHYSICAL EXAMINATION: GENERAL: The patient is awake, alert, oriented, and able to communicate. VITAL SIGNS: She is afebrile, pulse 57, respirations 18, and blood pressure 145/77. LUNGS: Bilateral fair airflow. No rhonchi or crackle. HEART: S1 and S2 audible. ABDOMEN: Soft and nontender. No rebound. No guarding. NEUROLOGIC: The patient is awake, alert, oriented, able to communicate. LABORATORY DATA: There are no new labs available today. ASSESSMENT: 1. Coronary artery disease, status post circumflex angioplasty. 2. Hypertension. 3. Hyperlipidemia. 4. Insulin-dependent diabetes. 5. Coronary artery disease, status post angio. 6. Insulin-dependent diabetes. 7. Peptic ulcer disease. 8. Anxiety disorder. 9. Hypothyroidism. DISCHARGE PLAN: The patient is clinically stable. The patient is accepted in subacute rehab and will be discharged today. We will continue current medication and she will follow up with the PMD upon discharge. Eugenio Carl MD
== END 2018-07-26 21:28 | DRG 247 ==
LOC: ED 15:16 → ERH 17:02 → 2RNO 21:05 → 2RSO 07-24 09:58
PROVIDERS: ADMIT Internal Medicine; ATTEND Internal Medicine
PROC: 027034Z Dilation of Coronary Artery, One Artery with Drug-eluting Intraluminal Device, Percutaneous Approach (ICD-10-PCS; principal; 2018-07-24)
PROC: 4A023N7 Measurement of Cardiac Sampling and Pressure, Left Heart, Percutaneous Approach (ICD-10-PCS; 2018-07-24)
PROC: B211YZZ Fluoroscopy of Multiple Coronary Arteries using Other Contrast (ICD-10-PCS; 2018-07-24)
PROC: B215YZZ Fluoroscopy of Left Heart using Other Contrast (ICD-10-PCS; 2018-07-24)
DX: I25.110 Atherosclerotic heart disease of native coronary artery with unstable angina pectoris (principal); T82.855A Stenosis of coronary artery stent, initial encounter; E11.65 Type 2 diabetes mellitus with hyperglycemia; J44.9 Chronic obstructive pulmonary disease, unspecified; E11.319 Type 2 diabetes mellitus with unspecified diabetic retinopathy without macular edema; E11.42 Type 2 diabetes mellitus with diabetic polyneuropathy; E11.51 Type 2 diabetes mellitus with diabetic peripheral angiopathy without gangrene; I27.20 Pulmonary hypertension, unspecified; I25.5 Ischemic cardiomyopathy; I42.0 Dilated cardiomyopathy; I25.82 Chronic total occlusion of coronary artery; I10 Essential (primary) hypertension; E03.9 Hypothyroidism, unspecified; E78.00 Pure hypercholesterolemia, unspecified; E78.5 Hyperlipidemia, unspecified; F41.1 Generalized anxiety disorder; R26.2 Difficulty in walking, not elsewhere classified; G47.30 Sleep apnea, unspecified; K27.9 Peptic ulcer, site unspecified, unspecified as acute or chronic, without hemorrhage or perforation; K21.9 Gastro-esophageal reflux disease without esophagitis; Z79.02 Long term (current) use of antithrombotics/antiplatelets; Z79.4 Long term (current) use of insulin; Z86.73 Personal history of transient ischemic attack (TIA), and cerebral infarction without residual deficits; Z85.3 Personal history of malignant neoplasm of breast; Z95.1 Presence of aortocoronary bypass graft; Z87.11 Personal history of peptic ulcer disease; Z87.891 Personal history of nicotine dependence; Z98.84 Bariatric surgery status; Z95.5 Presence of coronary angioplasty implant and graft; Z88.5 Allergy status to narcotic agent; Y83.1 Surgical operation with implant of artificial internal device as the cause of abnormal reaction of the patient, or of later complication, without mention of misadventure at the time of the procedure; Z79.82 Long term (current) use of aspirin; Z79.890 Hormone replacement therapy